=== PATIENT | female | born 1940 | race American Indian/Alaskan Native ===

== ENCOUNTER 2017-09-16 12:01 | Inpatient (IN) | payer MEDICARE, MEDICAID ==
--- NOTE | 2017-09-16 12:27 | ED PDOC ---
Arrival/HPI - General Time Seen by Provider: 09/16/17 12:23 Historian: Patient - History of Present Illness Narrative History of Present Illness (Text): 09/16/17 12:2 77 year old female, whose PMH includes hypertension, bells palsy, and hypothyroidism, who presents to the emergency department complaining of severe bilateral edema. Patient reports her having high salty food and eating it causing her lower extremities to swell. patient is complaining of right foot blister as well as coughing with sputum. Patient denies fever, chest pain, shortness of breath, abdominal pain, nausea, vomiting, diarrhea, or other complaints. PMD: Dr. Valdez Time/Duration: 24 hours Symptom Onset: Gradual Symptom Course: Unchanged Activities at Onset: Rest, Eating Context: Home Past Medical History - Provider Review Nursing Documentation Reviewed: Yes - Infectious Disease Hx of Infectious Diseases: None - Cardiac Hx Hypertension: Yes - Pulmonary Hx Respiratory Disorders: No - Neurological Hx Neurological Disorder: Yes Other/Comment: BELLS PALSY - HEENT Hx HEENT Disorder: No - Renal Hx Renal Disorder: No - Endocrine/Metabolic Hx Hypothyroidism: Yes - Hematological/Oncological Hx Blood Disorders: No - Integumentary Hx Dermatological Disorder: Yes (BILATERAL GLUTEAL FOLD WITH SKIN EXCORIATION. IASD) - Musculoskeletal/Rheumatological Hx Arthritis: Yes - Gastrointestinal Hx Gastrointestinal Disorders: Yes Other/Comment: morbid obesity - Genitourinary/Gynecological Hx Genitourinary Disorders: Yes Hx Incontinence: Yes - Psychiatric Hx Psychophysiologic Disorder: No Hx Substance Use: No - Surgical History Hx Cholecystectomy: Yes Other/Comment: ganglion cyst left hand - Anesthesia Hx Anesthesia: Yes Hx Anesthesia Reactions: No Hx Malignant Hyperthermia: No - Suicidal Assessment Feels Threatened In Home Enviroment: No Family/Social History - Physician Review Nursing Documentation Reviewed: Yes Family/Social History: Unknown Family HX Smoking Status: Never Smoked Hx Alcohol Use: No Hx Substance Use: No Allergies/Home Meds Allergies/Adverse Reactions: Allergies No Known Allergies Allergy (Verified 09/30/15 14:31) Home Medications: Home Meds Medication Instructions Recorded Confirmed Levothyroxine Sodium 0.05 mg PO DAILY 10/15/14 09/16/17 [Levothyroxine] Metoprolol Tartrate 50 mg PO BID 07/08/15 09/16/17 Atorvastatin [Lipitor] 10 mg PO HS 09/30/15 09/16/17 hydrALAZINE [Apresoline] 25 mg PO DAILY 09/30/15 09/16/17 Review of Systems - Physician Review All systems were reviewed & negative as marked: Yes - Review of Systems Constitutional: absent: Fevers Respiratory: absent: SOB Musculoskeletal: Other (bilateral lower extremity edema with blister on right foot) Physical Exam - Physical Exam Narrative Physical Exam (Text): 09/16/17 Gen: VS reviewed, alert, well developed, well nourished, nontoxic, mild distress. ENT: normal pharynx. Eye: EOMI, PERRL. Neck: no JVD, supple, no adenopathy. CV: regular rate, regular rhythm, no rubs, no murmur, no gallops, S1, S2, pulses equal and strong. Pulm: no distress, clear to auscultation, no wheeze, no rhonchi, breath sounds equal, no rales. Abd: soft, nontender, no guarding, no rebound, no rigidity, normal bowel sounds. Ext: (+) extensive edema on bilateral lower extremities, (+) right beck tender to touch with erythema to dorsum of foot circumferential to heel of foot (+) foul odor right foot with excoriating tissue between toes Skin: good color, no rash, no cyanosis. Psych: responds appropriately to questions, normal affect. Neuro: oriented x 3, CN2-12 intact grossly, motor intact, sensation intact. Vital Signs Temp Pulse Resp BP Pulse Ox 09/16/17 16:35 98.5 F 80 18 134/72 98 09/16/17 13:02 98.5 F 72 18 133/64 98 Appearance: Positive for: Well-Appearing, Non-Toxic, Comfortable Pain Distress: None Mental Status: Positive for: Alert and Oriented X 3 Medical Decision Making ED Course and Treatment: 09/16/17 Impression: 77 year old female with extensive edema on bilateral lower extremities, right beck tender to touch with erythema to dorsum of foot circumferential to heel of foot and foul odor right foot with excoriating tissue between toes Plan: -- Chest X-ray -- Lower extremity ultrasound -- Labs -- Reassess and disposition Progress Notes: 09/16/17 15:[address] dillard, patient to be admitted for right foot cellulitis , empiric coverage for mrsa and pseudomonas as there is a foul odor stemming from the foot. patient remained stable clinically during ED course and has not required analgeiscs. - Lab Interpretations Lab Results: 09/16/17 14:20 Lab Results 09/16/17 14:20: WBC 8.0 D, RBC 4.63, Hgb 11.9 L, Hct 37.5, MCV 81.0, MCH 25.7, MCHC 31.7, RDW 15.8 H, Plt Count 217, MPV 10.4, Gran % 74.6 H, Lymph % (Auto) 17.3 L, Cameron % (Auto) 7.1 H, Eos % (Auto) 0.9 L, Baso % (Auto) 0.1, Gran # 6.00 , Lymph # (Auto) 1.4, Cameron # (Auto) 0.6, Eos # (Auto) 0.1, Baso # (Auto) 0.01 I have reviewed the lab results: Yes - RAD Interpretation Narrative RAD Interpretations (Text): 09/16/17 15:29 Chest X-ray reviewed by radiologist, shows no active pulmonary disease. Radiology Orders: 09/16/17 13:04 CHEST PORTABLE [RAD] Stat 09/16/17 13:07 DUPLEX LOWER EXTRM VEIN BILAT [US] Stat Assembler Installer Structures: Radiologist - Medication Orders Current Medication Orders: Discontinued Medications Vancomycin HCl 1.5 gm/ Sodium (Chloride) 500 mls @ 167 mls/hr IVPB ONCE ONE PRN Reason: Protocol Stop: 09/16/17 16:04 Last Admin: 09/16/17 16:26 Dose: 167 mls/hr eMAR Start Stop Document 09/16/17 16:26 HI (Rec: 09/16/17 16:26 HI [email or web address] Intravenous Solution Start Date 09/16/17 Start Time 16:26 Piperacillin Sod/Tazobactam Sod (Zosyn 3.375 In Ns 100ml) 100 mls @ 200 mls/hr IVPB STAT STA PRN Reason: Protocol Stop: 09/16/17 13:36 Last Admin: 09/16/17 15:16 Dose: 200 mls/hr eMAR Start Stop Document 09/16/17 15:16 HI (Rec: 09/16/17 15:16 HI [email or web address]) Intravenous Solution Start Date 09/16/17 Start Time 15:16 - Scribe Statement The provider has reviewed the documentation as recorded by the Waldo Lyon Provider Waldo Attestation: All medical record entries made by the Waldo were at my direction and personally dictated by me. I have reviewed the chart and agree that the record accurately reflects my personal performance of the history, physical exam, medical decision making, and the department course for this patient. I have also personally directed, reviewed, and agree with the discharge instructions and disposition. Disposition/Present on Arrival - Present on Arrival Any Indicators Present on Arrival: No History of DVT/PE: No History of Uncontrolled Diabetes: No Urinary Catheter: No History Surgical Site Infection Following: None - Disposition Have Diagnosis and Disposition been Completed?: Yes Diagnosis: Cellulitis of foot Disposition: HOSPITALIZED Disposition Time: 15:38 Patient Plan: Admission Patient Problems: Current Active Problems Problem Status Onset Cellulitis of foot Acute Condition: GOOD
[2017-09-16] MEDS ORDERED: Vancomycin 1.5 GM in Sodium Chloride 0.9% 500 ML IVPB ONE (13:05)
[2017-09-16] MEDS ORDERED: Piperacillin/Tazobact 3.375 gm 100 ML IVPB STA (13:07)
[2017-09-16 14:41] LABS: BASO # 0.01 K/mm3 (0.0-2.0); BASO % 0.1 % (0.0-3.0); EOS # 0.1 (0.0-0.7); EOS % 0.9 % (1.5-5.0); GRAN % 74.6 % (50.0-68.0); HEMOGLOBIN 11.9 g/dL (12.0-16.0); LYMPH # 1.4 (1.2-3.4); LYMPH % 17.3 % (22.0-35.0); MEAN CORPUSCULAR HEMOGLOBIN 25.7 pg (25.0-35.0); MEAN CORPUSCULAR HGB CONC 31.7 g/dl (31.0-37.0); MEAN PLATELET VOLUME 10.4 fl (7.0-11.0); MONO # 0.6 (0.1-0.6); MONO % 7.1 % (1.0-6.0); RBC 4.63 10^6/uL (3.5-6.1); RED CELL DISTRIBUTION WIDTH 15.8 % (11.5-14.5)
--- NOTE | 2017-09-16 15:14 | RAD ---
Date of service: 09/16/2017 HISTORY: Chest pain COMPARISON: 09/30/2015. FINDINGS: LUNGS: The lungs are well inflated and clear. PLEURA: No significant pleural effusion identified, no pneumothorax apparent. CARDIOVASCULAR: This persistent mild cardiomegaly. Atherosclerotic aortic arch calcifications are present. OSSEOUS STRUCTURES: No significant abnormalities. VISUALIZED UPPER ABDOMEN: Normal. OTHER FINDINGS: None. IMPRESSION: No active pulmonary disease.
--- NOTE | 2017-09-16 16:11 | US ---
HISTORY: Leg pain and swelling. Evaluate for DVT PHYSICIAN(S): Jose Alegria MD. TECHNIQUE: Duplex sonography and color-flow Doppler with graded compression were used to evaluate the deep venous systems of both lower extremities. The exam is very limited by body habitus and edema. The lower femoral veins and tibial veins are not adequately seen. FINDINGS: The visualized deep venous systems of both lower extremities are sonographically normal and compressible. Normal wave forms and augmentation are seen. There is no sonographic evidence for deep venous thrombosis in the visualized segments of both lower extremities. IMPRESSION: No sonographic evidence for deep venous thrombosis in the visualized segments of both lower extremities. Very limited study.
[2017-09-16 19:25] LABS: INR 1.08 (0.93-1.08); PARTIAL THROMBOPLASTIN TIME 30.5 Seconds (25.1-36.5); PROTHROMBIN TIME 12.3 SECONDS (9.4-12.5)
[2017-09-16 19:50] LABS: ALBUMIN 3.4 g/dL (3.0-4.8); BLOOD UREA NITROGEN 10 mg/dL (7-21); CALCIUM 8.7 mg/dL (8.4-10.5); GFR AFRICAN-AMERICAN > 60; GFR NON-AFRICAN AMERICAN > 60
[2017-09-16 19:51] LABS: ALT/SGPT 26 U/L (7-56); AST/SGOT 25 U/L (14-36); B-TYPE NATRIURETIC PEPTIDE 79.3 pg/mL (0-450); TROPONIN I < 0.01 ng/mL
[2017-09-17 05:51] VITALS: BMI 56.8
--- NOTE | 2017-09-17 06:53 | CP.PCM.HP ---
<Gladys Rodrigues - Last Filed: 09/17/17 09:24> History of Present Illness - History of Present Illness History of Present Illness: H&P for Ander Hopper PGY3 This is a 77yo female with past medical history of HTN, hypothyroidism, ryan's palsy (L), arthritis and obesity who came to ED for leg swelling for several days. Patient states this happens when she eats a lot of salt. She also complains of some shortness of breath when she walks. She was found to have a blister on her R food as well. Patient is morbidly obese and lives alone. She has trouble ambulating and getting out of the bed as per nursing staff. Patient had bilateral LE US which was negative for DVT. Patient states she does have someone come to the house who evaluates her feet at home. Patient has been previously admitted to the hospital for fall. She denies chest pain, shortness of breath at rest, fever/chills, numbness/tingling, nausea/vomiting/diarrhea, dysuria or hematuria. Patient does admit to constipation and does take lactulose at home as needed for constipation. Past medical history: HTN, Ryan's palsy, hypothyroidism, arthritis, obesity Past surgical history: cholecystectomy, cyst removal on L hand Home meds: reviewed as per MAR Allergies: None Social history: Denies EtOH, Drug or tobacco use. Lives alone. Family history: Daughter of unknown cancer. Mom- of heart and kidney problems Present on Admission - Present on Admission Any Indicators Present on Admission: No Review of Systems - Review of Systems All systems: reviewed and no additional remarkable complaints except Review of Systems: 12 point ROS reviewed as per HPI and is otherwise negative Past Patient History - Infectious Disease Hx of Infectious Diseases: None - Past Social History Smoking Status: Never Smoked - CARDIAC Hx Hypertension: Yes - PULMONARY Hx Respiratory Disorders: No - NEUROLOGICAL Other/Comment: bells palsey- right facial droop - HEENT Hx HEENT Problems: No - RENAL Hx Chronic Kidney Disease: No - ENDOCRINE/METABOLIC Hx Hypothyroidism: Yes - HEMATOLOGICAL/ONCOLOGICAL Hx Blood Disorders: No - INTEGUMENTARY Hx Dermatological Problems: Yes (BILATERAL GLUTEAL FOLD WITH SKIN EXCORIATION. IASD) - MUSCULOSKELETAL/RHEUMATOLOGICAL Hx Arthritis: Yes Hx Falls: Yes Hx Unsteady Gait: Yes (walker at home) - GASTROINTESTINAL Hx Gastrointestinal Disorders: Yes Other/Comment: morbid obesity - GENITOURINARY/GYNECOLOGICAL Hx Genitourinary Disorders: Yes Hx Incontinence: Yes - PSYCHIATRIC Hx Psychophysiologic Disorder: No Hx Substance Use: No - SURGICAL HISTORY Hx Surgeries: Yes - ANESTHESIA Hx Anesthesia: Yes Hx Anesthesia Reactions: No Hx Malignant Hyperthermia: No Meds Allergies/Adverse Reactions: Allergies Allergy/AdvReac Type Severity Reaction Status Date / Time No Known Allergies Allergy Verified 09/30/15 14:31 Physical Exam - Constitutional Appears: No Acute Distress - Head Exam Head Exam: ATRAUMATIC, NORMAL INSPECTION, NORMOCEPHALIC - Eye Exam Eye Exam: Normal appearance, PERRL Pupil Exam: NORMAL ACCOMODATION - ENT Exam ENT Exam: Mucous Membranes Moist - Respiratory Exam Respiratory Exam: Clear to Auscultation Bilateral, NORMAL BREATHING PATTERN. absent: Rales, Rhonchi, Wheezes - Cardiovascular Exam Cardiovascular Exam: REGULAR RHYTHM, +S1, +S2. absent: Gallop, Rubs, Systolic Murmur - GI/Abdominal Exam GI & Abdominal Exam: Normal Bowel Sounds, Soft. absent: Mass, Rebound, Rigid, Tenderness - Extremities Exam Extremities exam: Positive for: pedal edema (nonpitting bilaterally ), pedal pulses present. Negative for: calf tenderness, tenderness Additional comments: small blister on R johnson and on R foot. Small wound on R heel - Neurological Exam Neurological exam: Alert, CN II-XII Intact, Oriented x3 - Psychiatric Exam Psychiatric exam: Normal Affect, Normal Mood - Skin Skin Exam: Dry, Warm Results - Vital Signs Recent Vital Signs: Last Vital Signs Temp 98.3 F 09/16/17 17:47 Pulse 74 09/16/17 17:47 Resp 16 09/16/17 17:47 BP 149/71 09/16/17 17:47 Pulse Ox 95 09/17/17 01:01 - Labs Result Diagrams: 09/16/17 14:20 09/16/17 19:11 Labs: Laboratory Results - last 24 hr 09/16/17 09/16/17 09/16/17 19:11 19:11 19:11 PT 12.3 INR 1.08 APTT 30.5 Sodium 145 Potassium 4.2 Chloride 105 Carbon Dioxide 32 Anion Gap 12 BUN 10 Creatinine 0.6 L Est GFR ( Amer) > 60 Est GFR (Non-Af Amer) > 60 Random Glucose 108 Lactic Acid 2.7 H Calcium 8.7 Total Bilirubin 0.4 AST 25 ALT 26 Alkaline Phosphatase 82 Troponin I < 0.01 D NT-Pro-B Natriuret Pep 79.3 Total Protein 6.7 Albumin 3.4 Globulin 3.3 Albumin/Globulin Ratio 1.0 L Assessment & Plan - Assessment and Plan (Free Text) Assessment: This is a 77yo female with past medical history of HTN, hypothyroidism, ryan's palsy (L), arthritis and obesity who was admitted for 1. Bilateral Leg edema - multifactorial secondary to morbid obesity v. increased salt intake v. cellulitis 2. HTN 3. Hypothyroidism 4. Hx of Ryan's palsy 5. Arthritis 6. Obesity Plan: Podiatry is consulted. We will follow their recommendations. Patient will need to be evaluated by physical therapy since she has trouble leaving the bed and lives alone. We will place patient on lasix [id number]. ID is on consult for cellulitis. We will continue home medications: ASA, Lipitor, synthroid and Lopressor. Patient is tolerating diet and pain is controlled. Patient is on GI and DVT prophylaxis. Case seen, discussed and reviewed with Dr. Poe. Ander Rodrigues PGY3 - Date & Time Date: 09/17/17 Time: 09:38 <Ata Poe S - Last Filed: 09/17/17 23:33> Results - Vital Signs Recent Vital Signs: Last Vital Signs Temp 98.8 F 09/17/17 22:00 Pulse 71 09/17/17 22:00 Resp 16 09/17/17 22:00 BP 111/49 L 09/17/17 22:00 Pulse Ox 96 09/17/17 22:00 - Labs Result Diagrams: 09/16/17 14:20 09/16/17 19:11 Assessment & Plan - Assessment and Plan (Free Text) Plan: Pt seen and examined. I have reviewed the note of the medical management specialist and agree with it. I have discussed the assessment and plan with the resident. I have reviewed the patient's labs and medications. Pt on Lipitor for dyslipidemia. On Lasix for LE edema. ID evaluation. Podiatry evaluation.
[2017-09-17] MEDS: Levothyroxine 50 MCG TAB PO SCH (09:19)
--- NOTE | 2017-09-17 12:38 | CP.PCM.CON ---
History of Present Illness - History of Present Illness History of Present Illness: 77 year old female with PMH of HTN, tatum's palsy, morbid obesity with BMI 57, arthritis, S/P cholecystectomy, hypothyroidism came in to [facility] complaining of bilateral lower extremity swelling as well as a right heel blister which is painful. She states her leg swelling happens especially after she takes salty foods. She denies fever or chills, no soaking of her feet in water, no nausea or vomiting, no headache or dizziness, no chest pain, no SOB, no abdominal pain , no diarrhea, no dysuria, no travel outside of [place] in the past month, no animal contacts. Infectious Diseases consult is requested to further evaluate and manage. Review of Systems - Review of Systems All systems: reviewed and no additional remarkable complaints except (as per HPI ) Past Patient History - Infectious Disease Hx of Infectious Diseases: None - Past Social History Smoking Status: Never Smoked - CARDIAC Hx Hypertension: Yes - PULMONARY Hx Respiratory Disorders: No - NEUROLOGICAL Other/Comment: bells palsey- right facial droop - HEENT Hx HEENT Problems: No - RENAL Hx Chronic Kidney Disease: No - ENDOCRINE/METABOLIC Hx Hypothyroidism: Yes - HEMATOLOGICAL/ONCOLOGICAL Hx Blood Disorders: No - INTEGUMENTARY Hx Dermatological Problems: Yes (BILATERAL GLUTEAL FOLD WITH SKIN EXCORIATION. IASD) - MUSCULOSKELETAL/RHEUMATOLOGICAL Hx Arthritis: Yes Hx Falls: Yes Hx Unsteady Gait: Yes (walker at home) - GASTROINTESTINAL Hx Gastrointestinal Disorders: Yes Other/Comment: morbid obesity - GENITOURINARY/GYNECOLOGICAL Hx Genitourinary Disorders: Yes Hx Incontinence: Yes - PSYCHIATRIC Hx Psychophysiologic Disorder: No Hx Substance Use: No - SURGICAL HISTORY Hx Surgeries: Yes - ANESTHESIA Hx Anesthesia: Yes Hx Anesthesia Reactions: No Hx Malignant Hyperthermia: No Meds Allergies/Adverse Reactions: Allergies Allergy/AdvReac Type Severity Reaction Status Date / Time No Known Allergies Allergy Verified 09/30/15 14:31 - Medications Medications: Current Medications Atorvastatin Calcium (Lipitor) 10 mg PO HS [facility] Last Admin: 09/16/17 21:36 Dose: 10 mg Levothyroxine Sodium (Synthroid) 50 mcg PO DAILY [facility] Metoprolol Tartrate (Lopressor) 50 mg PO BID [facility] Last Admin: 09/16/17 18:39 Dose: 50 mg Physical Exam - Constitutional Appears: Chronically Ill - Head Exam Head Exam: NORMAL INSPECTION - ENT Exam ENT Exam: Mucous Membranes Moist - Neck Exam Neck exam: Negative for: Lymphadenopathy, Meningismus - Respiratory Exam Respiratory Exam: Decreased Breath Sounds - Cardiovascular Exam Cardiovascular Exam: +S1, +S2 - GI/Abdominal Exam GI & Abdominal Exam: Soft. absent: Tenderness - Extremities Exam Additional comments: right heel blister with dressings in place; bilateral lower extremity swelling without erythema or tenderness, no discharge Results - Vital Signs Recent Vital Signs: Last Vital Signs Temp 98.3 F 09/16/17 17:47 Pulse 74 09/16/17 17:47 Resp 16 09/16/17 17:47 BP 149/71 09/16/17 17:47 Pulse Ox 98 09/16/17 16:54 - Labs Result Diagrams: 09/16/17 14:20 09/16/17 19:11 Labs: Laboratory Results - last 24 hr 09/16/17 09/16/17 09/16/17 19:11 19:11 19:11 PT 12.3 INR 1.08 APTT 30.5 Sodium 145 Potassium 4.2 Chloride 105 Carbon Dioxide 32 Anion Gap 12 BUN 10 Creatinine 0.6 L Est GFR ( Amer) > 60 Est GFR (Non-Af Amer) > 60 Random Glucose 108 Lactic Acid 2.7 H Calcium 8.7 Total Bilirubin 0.4 AST 25 ALT 26 Alkaline Phosphatase 82 Troponin I < 0.01 D NT-Pro-B Natriuret Pep 79.3 Total Protein 6.7 Albumin 3.4 Globulin 3.3 Albumin/Globulin Ratio 1.0 L Assessment & Plan - Assessment and Plan (Free Text) Plan: Assessment right heel blister lower extremity swelling probably venous stasis HTN tatum's palsy morbid obesity with BMI 57 arthritis S/P cholecystectomy hypothyroidism Plan will order bactroban over the heel blister, follow up Podiatry evaluation will monitor clinically
--- NOTE | 2017-09-17 14:17 | CP.PCM.CON ---
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 She states that her legs are often swollen and get very big. Says she takes water pills which help to alleviate her swelling but says the legs still feel tired. Says she can walk a few blocks before she gets very fatigued. States the legs hurt all the time, not just when she tries to walk. Denies F/C/N/V/CP/SOB. Denies numbness tingling or burning in the lower extremities. PSHx: cholecystectomy, cyst removal on L hand All: NKDA SocHx: Denies EtOH, cigarette or drug use FamHx: Daughter from cancer. Mother from heart, kidney issues Review of Systems - Review of Systems All systems: reviewed and no additional remarkable complaints except (per HPI) Past Patient History - Infectious Disease Hx of Infectious Diseases: None - Past Social History Smoking Status: Never Smoked - CARDIAC Hx Hypertension: Yes - PULMONARY Hx Respiratory Disorders: No - NEUROLOGICAL Other/Comment: bells palsey- right facial droop - HEENT Hx HEENT Problems: No - RENAL Hx Chronic Kidney Disease: No - ENDOCRINE/METABOLIC Hx Hypothyroidism: Yes - HEMATOLOGICAL/ONCOLOGICAL Hx Blood Disorders: No - INTEGUMENTARY Hx Dermatological Problems: Yes (BILATERAL GLUTEAL FOLD WITH SKIN EXCORIATION. IASD) - MUSCULOSKELETAL/RHEUMATOLOGICAL Hx Arthritis: Yes Hx Falls: Yes Hx Unsteady Gait: Yes (walker at home) - GASTROINTESTINAL Hx Gastrointestinal Disorders: Yes Other/Comment: morbid obesity - GENITOURINARY/GYNECOLOGICAL Hx Genitourinary Disorders: Yes Hx Incontinence: Yes - PSYCHIATRIC Hx Psychophysiologic Disorder: No Hx Substance Use: No - SURGICAL HISTORY Hx Surgeries: Yes - ANESTHESIA Hx Anesthesia: Yes Hx Anesthesia Reactions: No Hx Malignant Hyperthermia: No Meds Allergies/Adverse Reactions: Allergies Allergy/AdvReac Type Severity Reaction Status Date / Time No Known Allergies Allergy Verified 09/30/15 14:31 - Medications Medications: Current Medications Acetaminophen (Tylenol 325mg Tab) 650 mg PO Q6H PRN PRN Reason: Pain, moderate (4-7) Aspirin (Ecotrin) 81 mg PO DAILY [facility] Last Admin: 09/17/17 09:19 Dose: 81 mg Atorvastatin Calcium (Lipitor) 10 mg PO HS [facility] Last Admin: 09/16/17 21:36 Dose: 10 mg Famotidine (Pepcid) 40 mg PO HS [facility] Furosemide (Lasix) 40 mg IVP Q12 [facility] Last Admin: 09/17/17 09:57 Dose: 40 mg Heparin Sodium (Porcine) (Heparin) 5,000 units SC Q8 [facility] PRN Reason: Protocol Levothyroxine Sodium (Synthroid) 50 mcg PO DAILY [facility] Last Admin: 09/17/17 09:19 Dose: 50 mcg Metoprolol Tartrate (Lopressor) 50 mg PO BID [facility] Last Admin: 09/17/17 09:19 Dose: 50 mg Mupirocin (Bactroban Ointment) 0 gm TOP BID [facility] Oxycodone/Acetaminophen (Percocet 5/325 Mg Tab) 1 tab PO Q6H PRN PRN Reason: Pain, severe (8-10) Stop: 09/20/17 07:49 Physical Exam - Constitutional Appears: Well, Non-toxic, No Acute Distress - Extremities Exam Additional comments: Lower extremity focused exam: Vasc: DP/PT pulses non palpable secondary to edema. Temperature gradient warm to cool. +3 pitting edema noted from tibial tuberosity to dorsum of foot B/L. CFT < 3 sec to all digits Derm: Right plantar heel deep tissue injury noted with no breaks in skin or soft tissue. No open lesions, no erythema, no ecchymosis, no interdigital maceration Neuro: Protective sensation grossly intact Ortho: Mild tenderness noted upon elevation of legs. No posterior calf tenderness noted to palpation B/L - Neurological Exam Neurological exam: Alert, Oriented x3 - Psychiatric Exam Psychiatric exam: Normal Affect, Normal Mood Results - Vital Signs Recent Vital Signs: Last Vital Signs Temp 98.7 F 09/17/17 06:00 Pulse 79 09/17/17 06:00 Resp 20 09/17/17 06:00 BP 122/64 09/17/17 09:57 Pulse Ox 96 09/17/17 06:00 - Labs Result Diagrams: 09/16/17 14:20 09/16/17 19:11 Labs: Laboratory Results - last 24 hr 09/16/17 09/16/17 09/16/17 19:11 19:11 19:11 PT 12.3 INR 1.08 APTT 30.5 Sodium 145 Potassium 4.2 Chloride 105 Carbon Dioxide 32 Anion Gap 12 BUN 10 Creatinine 0.6 L Est GFR ( Amer) > 60 Est GFR (Non-Af Amer) > 60 Random Glucose 108 Lactic Acid 2.7 H Calcium 8.7 Total Bilirubin 0.4 AST 25 ALT 26 Alkaline Phosphatase 82 Troponin I < 0.01 D NT-Pro-B Natriuret Pep 79.3 Total Protein 6.7 Albumin 3.4 Globulin 3.3 Albumin/Globulin Ratio 1.0 L Assessment & Plan - Assessment and Plan (Free Text) Assessment: 77 y/o female with bilateral lower extremity edema Plan: Pt seen and evaluated at bedside Discussed with attending Dr. Mckinney KAYLA compression wraps applied B/L for edema control Rx arterial dopplers to evaluate LE circulation Multipodus boots ordered, to be worn at all times in bed Thank you for this consult <Adis Mckinney - Last Filed: 09/17/17 18:18> Meds - Medications Medications: Current Medications Acetaminophen (Tylenol 325mg Tab) 650 mg PO Q6H PRN PRN Reason: Pain, moderate (4-7) Aspirin (Ecotrin) 81 mg PO DAILY [facility] Last Admin: 09/17/17 09:19 Dose: 81 mg Atorvastatin Calcium (Lipitor) 10 mg PO HS [facility] Last Admin: 09/16/17 21:36 Dose: 10 mg Famotidine (Pepcid) 40 mg PO HS [facility] Furosemide (Lasix) 40 mg IVP Q12 [facility] Last Admin: 09/17/17 09:57 Dose: 40 mg Heparin Sodium (Porcine) (Heparin) 5,000 units SC Q8 [facility] PRN Reason: Protocol Last Admin: 09/17/17 16:15 Dose: 5,000 units Levothyroxine Sodium (Synthroid) 50 mcg PO DAILY [facility] Last Admin: 09/17/17 09:19 Dose: 50 mcg Metoprolol Tartrate (Lopressor) 50 mg PO BID [facility] Last Admin: 09/17/17 17:03 Dose: 50 mg Mupirocin (Bactroban Ointment) 0 gm TOP BID [facility] Last Admin: 09/17/17 17:03 Dose: 1 applic Oxycodone/Acetaminophen (Percocet 5/325 Mg Tab) 1 tab PO Q6H PRN PRN Reason: Pain, severe (8-10) Stop: 09/20/17 07:49 Results - Vital Signs Recent Vital Signs: Last Vital Signs Temp 98.7 F 09/17/17 06:00 Pulse 79 09/17/17 06:00 Resp 20 09/17/17 06:00 BP 122/64 09/17/17 09:57 Pulse Ox 96 09/17/17 06:00 - Labs Result Diagrams: 09/16/17 14:20 09/16/17 19:11 Labs: Laboratory Results - last 24 hr 09/16/17 09/16/17 09/16/17 19:11 19:11 19:11 PT 12.3 INR 1.08 APTT 30.5 Sodium 145 Potassium 4.2 Chloride 105 Carbon Dioxide 32 Anion Gap 12 BUN 10 Creatinine 0.6 L Est GFR ( Amer) > 60 Est GFR (Non-Af Amer) > 60 Random Glucose 108 Lactic Acid 2.7 H Calcium 8.7 Total Bilirubin 0.4 AST 25 ALT 26 Alkaline Phosphatase 82 Troponin I < 0.01 D NT-Pro-B Natriuret Pep 79.3 Total Protein 6.7 Albumin 3.4 Globulin 3.3 Albumin/Globulin Ratio 1.0 L Attending/Attestation - Attestation I have personally seen and examined this patient.: Yes I have fully participated in the care of the patient.: Yes I have reviewed all pertinent clinical information: Yes
[2017-09-17] MEDS: Mupirocin 2% Ointment 15 GM TUBE TOP SCH (17:03)
[2017-09-17] MEDS: Oxycodone/Acetaminophen 5/325 mg Tab PO PRN (21:20)
[2017-09-18] MEDS: Mupirocin 2% Ointment 15 GM TUBE TOP SCH ×2 (10:00→17:43)
[2017-09-18] MEDS: Levothyroxine 50 MCG TAB PO SCH (10:44)
--- NOTE | 2017-09-18 12:52 | CP.PCM.PN ---
Subjective - Date & Time of Evaluation Date of Evaluation: 09/17/17 Time of Evaluation: 12:00 - Subjective Subjective: No fevers, not in distress, still with leg swelling but less. Objective - Vital Signs/Intake and Output Vital Signs (last 24 hours): Temp Pulse Resp BP Pulse Ox 98.8 F 71 16 111/49 L 96 09/17/17 22:00 09/17/17 22:00 09/17/17 22:00 09/17/17 22:00 09/17/17 22:00 - Medications Medications: Current Medications Acetaminophen (Tylenol 325mg Tab) 650 mg PO Q6H PRN PRN Reason: Pain, moderate (4-7) Aspirin (Ecotrin) 81 mg PO DAILY [facility] Last Admin: 09/17/17 09:19 Dose: 81 mg Atorvastatin Calcium (Lipitor) 10 mg PO HS [facility] Last Admin: 09/17/17 21:20 Dose: 10 mg Famotidine (Pepcid) 40 mg PO HS [facility] Last Admin: 09/17/17 21:20 Dose: 40 mg Furosemide (Lasix) 40 mg IVP Q12 [facility] Last Admin: 09/17/17 09:57 Dose: 40 mg Heparin Sodium (Porcine) (Heparin) 5,000 units SC Q8 [facility] PRN Reason: Protocol Last Admin: 09/17/17 21:19 Dose: 5,000 units Levothyroxine Sodium (Synthroid) 50 mcg PO DAILY [facility] Last Admin: 09/17/17 09:19 Dose: 50 mcg Metoprolol Tartrate (Lopressor) 50 mg PO BID [facility] Last Admin: 09/17/17 17:03 Dose: 50 mg Mupirocin (Bactroban Ointment) 0 gm TOP BID [facility] Last Admin: 09/17/17 17:03 Dose: 1 applic Oxycodone/Acetaminophen (Percocet 5/325 Mg Tab) 1 tab PO Q6H PRN PRN Reason: Pain, severe (8-10) Stop: 09/20/17 07:49 Last Admin: 09/17/17 21:20 Dose: 1 tab - Labs Labs: 09/16/17 19:11 PT 12.3 SECONDS (9.4-12.5) 09/16/17 19:11 INR 1.08 (0.93-1.08) 09/16/17 19:11 APTT 30.5 Seconds (25.1-36.5) 09/16/17 19:11 - Constitutional Appears: Non-toxic, Chronically Ill - Head Exam Head Exam: NORMAL INSPECTION - Respiratory Exam Respiratory Exam: Decreased Breath Sounds - Cardiovascular Exam Cardiovascular Exam: +S1, +S2 - GI/Abdominal Exam GI & Abdominal Exam: Soft. absent: Tenderness - Extremities Exam Additional comments: right foot with dressings in place Assessment and Plan - Assessment and Plan (Free Text) Plan: Assessment right heel blister, R/O peripheral arterial disease lower extremity swelling probably venous stasis HTN tatum's palsy morbid obesity with BMI 57 arthritis S/P cholecystectomy hypothyroidism Plan continue bactroban day 2 over the heel blister; reviewed Podiatry evaluation - will follow up SHAKIR's will continue to monitor clinically
--- NOTE | 2017-09-18 16:28 | US ---
PROCEDURE: Lower extremity SHAKIR exam HISTORY: Peripheral vascular disease . Pain and ulceration. PHYSICIAN(S): Jose Alegria MD. FINDINGS: The exam is very limited by the patient's body habitus and in mobility. Cuffs could not be placed on the thighs The resting SHAKIR's are normal: right, 0.88and left, 1.17 The brachial systolic pressures are symmetric. The calf, ankle, and metatarsal PVR waveforms are relatively normal and symmetric. No significant gradients are seen. IMPRESSION: 1. Very limited study. 2. The PVR waveforms and pressures below the knees are relatively normal and symmetric
[2017-09-19] MEDS: Mupirocin 2% Ointment 15 GM TUBE TOP SCH ×2 (10:00→17:52)
[2017-09-19] MEDS: POLYETHYLENE GLYCOL 3350 17 GM/Dose PACKET PO SCH ×2 (10:02→17:46)
[2017-09-19] MEDS: Levothyroxine 50 MCG TAB PO SCH (10:02)
--- NOTE | 2017-09-19 10:47 | CP.PCM.PN ---
Subjective - Date & Time of Evaluation Date of Evaluation: 09/19/17 Time of Evaluation: 10:43 - Subjective Subjective: Podiatry Progress Note- Dr. Edwards/Dr. Mckinney 77 y/o female with PMHx of HTN, hypothyroidism, arthritis, obesity, Ryan's palsy seen at bedside for bilateral lower extremity swelling and right heel DTI. Patient reports that she is feeling a little better today. Denies acute overnight events. Denies nausea/fever/shortness of breath/chest pains or chills. No other complaints today. Multipodus boots not on at bedside today. Reports has been wearing the boots all night and is taking a break from them. Objective - Vital Signs/Intake and Output Vital Signs (last 24 hours): Temp Pulse Resp BP Pulse Ox 99.5 F 80 21 114/69 95 09/19/17 08:18 09/19/17 10:01 09/19/17 08:18 09/19/17 10:01 09/19/17 08:18 Intake and Output: 09/19/17 09/19/17 06:59 18:59 Intake Total 660 Output Total 500 Balance 160 - Medications Medications: Current Medications Acetaminophen (Tylenol 325mg Tab) 650 mg PO Q6H PRN PRN Reason: Pain, moderate (4-7) Aspirin (Ecotrin) 81 mg PO DAILY [facility] Last Admin: 09/19/17 10:02 Dose: 81 mg Atorvastatin Calcium (Lipitor) 10 mg PO HS [facility] Last Admin: 09/18/17 22:03 Dose: 10 mg Famotidine (Pepcid) 40 mg PO HS [facility] Last Admin: 09/18/17 22:03 Dose: 40 mg Furosemide (Lasix) 40 mg IVP Q12 [facility] Last Admin: 09/19/17 10:01 Dose: 40 mg Heparin Sodium (Porcine) (Heparin) 5,000 units SC Q8 [facility] PRN Reason: Protocol Last Admin: 09/19/17 05:18 Dose: 5,000 units Levothyroxine Sodium (Synthroid) 50 mcg PO DAILY [facility] Last Admin: 09/19/17 10:02 Dose: 50 mcg Metoprolol Tartrate (Lopressor) 50 mg PO BID [facility] Last Admin: 09/19/17 10:01 Dose: 50 mg Mupirocin (Bactroban Ointment) 0 gm TOP BID [facility] Last Admin: 09/18/17 17:43 Dose: 1 applic Oxycodone/Acetaminophen (Percocet 5/325 Mg Tab) 1 tab PO Q6H PRN PRN Reason: Pain, severe (8-10) Stop: 09/20/17 07:49 Last Admin: 09/17/17 21:20 Dose: 1 tab Polyethylene Glycol (Miralax) 17 gm PO BID [facility] Last Admin: 09/19/17 10:02 Dose: 17 gm - Labs Labs: 09/16/17 19:11 PT 12.3 SECONDS (9.4-12.5) 09/16/17 19:11 INR 1.08 (0.93-1.08) 09/16/17 19:11 APTT 30.5 Seconds (25.1-36.5) 09/16/17 19:11 - Constitutional Appears: Well, Non-toxic, No Acute Distress - Extremities Exam Extremities Exam: absent: Calf Tenderness Additional comments: Lower extremity focused exam: Vasc: DP/PT pulses non palpable secondary to edema. Temperature gradient warm to cool. +3 pitting edema noted from tibial tuberosity to dorsum of foot B/L. CFT < 3 sec to all digits Derm: Right plantar heel deep tissue injury noted with no breaks in skin or soft tissue. No open lesions, no erythema, no ecchymosis, no interdigital maceration. No bogginess. No clinical signs of infection. No DTI noted to the left heel. No open lesions noted. Neuro: Protective sensation grossly intact Ortho: Mild tenderness noted upon elevation of legs. No posterior calf tenderness noted to palpation B/L - Psychiatric Exam Psychiatric exam: Normal Affect, Normal Mood Assessment and Plan - Assessment and Plan (Free Text) Assessment: 77 y/o female with bilateral lower extremity edema and right heel DTI Plan: Pt seen and evaluated at bedside Discussed with attending Dr. Edwards Afebrile, absent leukocytosis KAYLA compression wraps applied B/L for edema control Arterial dopplers to evaluate LE circulation -PVR waveorms and pressure below knees are relatively normal and symmetric -Right ABIs .88, Left ABIs 1.17 Venous duplex- negative DVT Multipodus to be worn at all times in bed Educated patient the important of wearing multipodus boots at all times
--- NOTE | 2017-09-19 16:27 | CP.PCM.PN ---
Subjective - Date & Time of Evaluation Date of Evaluation: 09/19/17 Time of Evaluation: 11:35 - Subjective Subjective: Comfortable, no fevers. Objective - Vital Signs/Intake and Output Vital Signs (last 24 hours): Temp Pulse Resp BP Pulse Ox 99.5 F 84 21 124/65 95 09/19/17 06:00 09/19/17 06:00 09/19/17 06:00 09/19/17 06:00 09/19/17 06:00 Intake and Output: 09/19/17 09/19/17 06:59 18:59 Intake Total 660 Output Total 500 Balance 160 - Medications Medications: Current Medications Acetaminophen (Tylenol 325mg Tab) 650 mg PO Q6H PRN PRN Reason: Pain, moderate (4-7) Aspirin (Ecotrin) 81 mg PO DAILY [facility] Last Admin: 09/18/17 10:44 Dose: 81 mg Atorvastatin Calcium (Lipitor) 10 mg PO HS [facility] Last Admin: 09/18/17 22:03 Dose: 10 mg Famotidine (Pepcid) 40 mg PO HS [facility] Last Admin: 09/18/17 22:03 Dose: 40 mg Furosemide (Lasix) 40 mg IVP Q12 [facility] Last Admin: 09/18/17 22:03 Dose: 40 mg Heparin Sodium (Porcine) (Heparin) 5,000 units SC Q8 [facility] PRN Reason: Protocol Last Admin: 09/19/17 05:18 Dose: 5,000 units Levothyroxine Sodium (Synthroid) 50 mcg PO DAILY [facility] Last Admin: 09/18/17 10:44 Dose: 50 mcg Metoprolol Tartrate (Lopressor) 50 mg PO BID [facility] Last Admin: 09/18/17 17:42 Dose: 50 mg Mupirocin (Bactroban Ointment) 0 gm TOP BID [facility] Last Admin: 09/18/17 17:43 Dose: 1 applic Oxycodone/Acetaminophen (Percocet 5/325 Mg Tab) 1 tab PO Q6H PRN PRN Reason: Pain, severe (8-10) Stop: 09/20/17 07:49 Last Admin: 09/17/17 21:20 Dose: 1 tab - Labs Labs: 09/16/17 19:11 PT 12.3 SECONDS (9.4-12.5) 09/16/17 19:11 INR 1.08 (0.93-1.08) 09/16/17 19:11 APTT 30.5 Seconds (25.1-36.5) 09/16/17 19:11 - Constitutional Appears: Chronically Ill - Head Exam Head Exam: NORMAL INSPECTION - Respiratory Exam Respiratory Exam: Decreased Breath Sounds - Cardiovascular Exam Cardiovascular Exam: +S1, +S2 - GI/Abdominal Exam GI & Abdominal Exam: Soft. absent: Tenderness Assessment and Plan - Assessment and Plan (Free Text) Plan: Assessment right heel blister, with no evidence of peripheral arterial disease lower extremity swelling probably venous stasis HTN tatum's palsy morbid obesity with BMI 57 arthritis S/P cholecystectomy hypothyroidism Plan continue bactrobanover the heel blister; reviewed Podiatry evaluation will continue to monitor clinically
--- NOTE | 2017-09-19 21:51 | PN ---
DATE: 09/19/2017 SUBJECTIVE: Ms. Alegria is a 77-year-old female admitted to the hospital with bilateral lower extremity cellulitis. She has morbid obesity, unable to ambulate, history of hypothyroidism, Ryan palsy, osteoarthritis. Complaining of pain in the neck due to positioning. Bilateral lower extremity Doppler did not show significant wave forms. Currently on IV antibiotics as per ID. PAST MEDICAL HISTORY: Hypertension, Ryan palsy, hypothyroidism, arthritis, morbid obesity. PAST SURGICAL HISTORY: Cholecystectomy, cyst removed from the hand. CURRENT MEDICATIONS: Tylenol 650 every 6 hours p.r.n., aspirin 81 mg daily, Lipitor 10 mg daily, Pepcid 40 mg at bedtime, Lasix 40 mg IV every 12 hours, heparin 5000 every 8 hours for DVT prophylaxis, Synthroid 50 mcg daily, metoprolol 50 mg p.o. b.i.d., MiraLax daily, Bactroban ointment. FAMILY HISTORY: Daughter of unknown cancer. REVIEW OF SYSTEMS: As per HPI. Rest of 12-point review of systems reviewed negative. PHYSICAL EXAMINATION:: GENERAL: Comfortable in bed, in no acute distress. Morbidly obese. VITAL SIGNS: Afebrile, temperature 98.2, heart rate 70 per minute, blood pressure 120/56, respiratory rate 20 per minute, oxygen saturation 98% on room air. HEENT: Pallor positive. NECK: No lymphadenopathy. CHEST: Air entry present and equal bilaterally. No added sounds. CARDIOVASCULAR: S1, S2 normal. No murmur. No gallop. ABDOMEN: Soft, nontender. No hepatosplenomegaly. EXTREMITIES: Bilateral extremity in dressing. INTERACTIVE MARKETING STRATEGIST: Alert, oriented x3. No focal, sensory, motor deficit. Moving all the limbs. SPINE: Nontender. LABORATORY DATA: Blood culture no growth till date. White count 8, hemoglobin 11.9, hematocrit 37.5, platelet 217. Sodium 145, potassium 4.2, creatinine 0.8. ASSESSMENT AND PLAN 1. Morbid obesity. 2. Bilateral lower extremity cellulitis. 3. Hypertension. 4. Mild anemia. PLAN: Continue current medications. She is on Bactroban topically. Podiatry consulted. Continue hypothyroid medication Synthroid 50 mcg p.o. daily. DVT prophylaxis with heparin 5000 t.i.d., Lasix b.i.d. Percocet p.r.n. for pain. Blood count stable. Hemoglobin showed mild anemia, 11.9 hemoglobin. We will continue to monitor. Coags normal. Renal functions within normal limits. Electrolytes normal, creatinine 0.6. Dorinda Cunningham MD
[2017-09-19] MEDS: Oxycodone/Acetaminophen 5/325 mg Tab PO PRN (22:45)
--- NOTE | 2017-09-20 08:38 | PN ---
DATE: 09/18/2017 SUBJECTIVE: The patient is a 77-year-old black female, seen and examined, lying in bed. The patient was admitted on 09/17/2017 leg swelling associated with some shortness of breath and generalized weakness. The patient has history of hypothyroidism, hypertension, Ryan palsy with left facial weakness, generalized osteoarthritis. PHYSICAL EXAMINATION: GENERAL: On examination today, she is awake and alert, able to communicate. VITAL SIGNS: She is afebrile, pulse 76, respirations 20, blood pressure 125/70. HEENT: She has left facial weakness. LUNGS: Bilateral fair airflow. No rhonchi or crackle. HEART: S1 and S2 audible. ABDOMEN: Soft, obese, nontender. No rebound, no guarding. NEUROLOGIC: The patient is awake and alert with generalized weakness. EXTREMITIES: Bilateral legs are in dressing. LABORATORY DATA: , PT 12.3, INR 1.08. Chemistry, her lactic acid is 2.7. Blood cultures are negative. ASSESSMENT: 1. Bilateral leg edema. 2. Deconditioning and difficulty walking. 3. History of Ryan palsy. 4. Hypothyroidism. 5. Generalized osteoarthritis. 6. Hypertension. PLAN: The patient is getting pressure bandages placed to both legs. She is on aspirin, lactulose. She is on DVT prophylaxis and we will continue on current medications. Out of bed to chair, we will reevaluate the patient in the morning. Rivka Carney MD
[2017-09-20] MEDS: POLYETHYLENE GLYCOL 3350 17 GM/Dose PACKET PO SCH ×2 (09:32→17:58)
[2017-09-20] MEDS: Levothyroxine 50 MCG TAB PO SCH (09:32)
[2017-09-20] MEDS: Oxycodone/Acetaminophen 5/325 mg Tab PO PRN (09:37)
--- NOTE | 2017-09-20 09:57 | CP.PCM.DIS ---
<RaviGladys - Last Filed: 09/20/17 14:13> Provider - Provider Date of Admission: 09/16/17 15:39 Attending physician: Ata Poe MD Primary care physician: Aashish Valedz MD Consults: Podiatry Time Spent in preparation of Discharge (in minutes): 35 Hospital Course - Lab Results Lab Results: Most Recent Lab Values WBC 8.0 10^3/ul (4.5-11.0) D 09/16/17 14:20 RBC 4.63 10^6/uL (3.5-6.1) 09/16/17 14:20 Hgb 11.9 g/dL (12.0-16.0) L 09/16/17 14:20 Hct 37.5 % (36.0-48.0) 09/16/17 14:20 MCV 81.0 fl (80.0-105.0) 09/16/17 14:20 MCH 25.7 pg (25.0-35.0) 09/16/17 14:20 MCHC 31.7 g/dl (31.0-37.0) 09/16/17 14:20 RDW 15.8 % (11.5-14.5) H 09/16/17 14:20 Plt Count 217 10^3/uL (120.0-450.0) 09/16/17 14:20 MPV 10.4 fl (7.0-11.0) 09/16/17 14:20 Gran % 74.6 % (50.0-68.0) H 09/16/17 14:20 Lymph % (Auto) 17.3 % (22.0-35.0) L 09/16/17 14:20 Ramsey % (Auto) 7.1 % (1.0-6.0) H 09/16/17 14:20 Eos % (Auto) 0.9 % (1.5-5.0) L 09/16/17 14:20 Baso % (Auto) 0.1 % (0.0-3.0) 09/16/17 14:20 Gran # 6.00 (1.4-6.5) 09/16/17 14:20 Lymph # (Auto) 1.4 (1.2-3.4) 09/16/17 14:20 Ramsey # (Auto) 0.6 (0.1-0.6) 09/16/17 14:20 Eos # (Auto) 0.1 (0.0-0.7) 09/16/17 14:20 Baso # (Auto) 0.01 K/mm3 (0.0-2.0) 09/16/17 14:20 ESR 49 mm/hr (0.0-20.0) H 09/18/17 10:25 PT 12.3 SECONDS (9.4-12.5) 09/16/17 19:11 INR 1.08 (0.93-1.08) 09/16/17 19:11 APTT 30.5 Seconds (25.1-36.5) 09/16/17 19:11 Sodium 145 mmol/L (132-148) 09/16/17 19:11 Potassium 4.2 mmol/L (3.6-5.0) 09/16/17 19:11 Chloride 105 mmol/L (98-107) 09/16/17 19:11 Carbon Dioxide 32 mmol/L (21-33) 09/16/17 19:11 Anion Gap 12 (10-20) 09/16/17 19:11 BUN 10 mg/dL (7-21) 09/16/17 19:11 Creatinine 0.6 mg/dl (0.7-1.2) L 09/16/17 19:11 Est GFR ( Amer) > 60 09/16/17 19:11 Est GFR (Non-Af Amer) > 60 09/16/17 19:11 Random Glucose 108 mg/dL (70-110) 09/16/17 19:11 Lactic Acid 2.7 mmol/L (0.7-2.1) H 09/16/17 19:11 Calcium 8.7 mg/dL (8.4-10.5) 09/16/17 19:11 Total Bilirubin 0.4 mg/dL (0.2-1.3) 09/16/17 19:11 AST 25 U/L (14-36) 09/16/17 19:11 ALT 26 U/L (7-56) 09/16/17 19:11 Alkaline Phosphatase 82 U/L (38-126) 09/16/17 19:11 Troponin I < 0.01 ng/mL D 09/16/17 19:11 NT-Pro-B Natriuret Pep 79.3 pg/mL (0-450) 09/16/17 19:11 Total Protein 6.7 g/dL (5.8-8.3) 09/16/17 19:11 Albumin 3.4 g/dL (3.0-4.8) 09/16/17 19:11 Globulin 3.3 gm/dL 09/16/17 19:11 Albumin/Globulin Ratio 1.0 (1.1-1.8) L 09/16/17 19:11 - Hospital Course Hospital Course: This is a 77yo female with past medical history of HTN, hypothyroidism, tatum's palsy (L), arthritis and obesity who was admitted for bilateral leg edema secondary to morbid obesity with increased salt intake. Patient was also suspected to have R leg cellulitis, but most likely secondary to venous stasis. She had LE duplex US and SHAKIR which were both limited due to body habitus but within normal limits. ID was consulted. Patient was placed on bacitracin only. Podiatry consulted and did local wound care and placed patient on boots. She was placed on Lasix and leg edema improved. Patient had PT and they recommended [facility]. Patient will be d/c to [facility]. She verbalized and agreed with discharge plan. - Date & Time of H&P Date of H&P: 09/17/17 Time of H&P: 10:00 Discharge Exam - Head Exam Head Exam: ATRAUMATIC, NORMAL INSPECTION, NORMOCEPHALIC - Eye Exam Eye Exam: Normal appearance, PERRL Pupil Exam: NORMAL ACCOMODATION, PERRL - ENT Exam ENT Exam: Mucous Membranes Moist - Respiratory Exam Respiratory Exam: Clear to PA & Lateral, NORMAL BREATHING PATTERN, UNREMARKABLE. absent: Rhonchi, Wheezes, Respiratory Distress - Cardiovascular Exam Cardiovascular Exam: REGULAR RHYTHM, +S1, +S2. absent: Gallop, Rubs, Systolic Murmur - GI/Abdominal Exam GI & Abdominal Exam: Normal Bowel Sounds, Unremarkable. absent: Mass, Rigid, Soft, Tenderness - Extremities Exam Extremities exam: normal inspection Additional comments: dressing on heels in place- clean and dry - Neurological Exam Neurological exam: Alert, CN II-XII Intact, Oriented x3 - Psychiatric Exam Psychiatric exam: Normal Affect, Normal Mood - Skin Skin Exam: Dry, Intact, Warm Discharge Plan - Follow Up Plan Condition: GOOD Disposition: HOME/ ROUTINE Instructions: Cellulitis (Skin Infection), Adult (DC) Additional Instructions: Patient being discharge to [facility] Referrals: Aashish Valdez MD [Primary Care Provider] - <Ata Poe - Last Filed: 09/20/17 19:56> Provider - Provider Date of Admission: 09/16/17 15:39 Attending physician: Ata Poe MD Primary care physician: Aashish Valdez MD Hospital Course - Lab Results Lab Results: Most Recent Lab Values WBC 8.0 10^3/ul (4.5-11.0) D 09/16/17 14:20 RBC 4.63 10^6/uL (3.5-6.1) 09/16/17 14:20 Hgb 11.9 g/dL (12.0-16.0) L 09/16/17 14:20 Hct 37.5 % (36.0-48.0) 09/16/17 14:20 MCV 81.0 fl (80.0-105.0) 09/16/17 14:20 MCH 25.7 pg (25.0-35.0) 09/16/17 14:20 MCHC 31.7 g/dl (31.0-37.0) 09/16/17 14:20 RDW 15.8 % (11.5-14.5) H 09/16/17 14:20 Plt Count 217 10^3/uL (120.0-450.0) 09/16/17 14:20 MPV 10.4 fl (7.0-11.0) 09/16/17 14:20 Gran % 74.6 % (50.0-68.0) H 09/16/17 14:20 Lymph % (Auto) 17.3 % (22.0-35.0) L 09/16/17 14:20 Ramsey % (Auto) 7.1 % (1.0-6.0) H 09/16/17 14:20 Eos % (Auto) 0.9 % (1.5-5.0) L 09/16/17 14:20 Baso % (Auto) 0.1 % (0.0-3.0) 09/16/17 14:20 Gran # 6.00 (1.4-6.5) 09/16/17 14:20 Lymph # (Auto) 1.4 (1.2-3.4) 09/16/17 14:20 Ramsey # (Auto) 0.6 (0.1-0.6) 09/16/17 14:20 Eos # (Auto) 0.1 (0.0-0.7) 09/16/17 14:20 Baso # (Auto) 0.01 K/mm3 (0.0-2.0) 09/16/17 14:20 ESR 49 mm/hr (0.0-20.0) H 09/18/17 10:25 PT 12.3 SECONDS (9.4-12.5) 09/16/17 19:11 INR 1.08 (0.93-1.08) 09/16/17 19:11 APTT 30.5 Seconds (25.1-36.5) 09/16/17 19:11 Sodium 145 mmol/L (132-148) 09/16/17 19:11 Potassium 4.2 mmol/L (3.6-5.0) 09/16/17 19:11 Chloride 105 mmol/L (98-107) 09/16/17 19:11 Carbon Dioxide 32 mmol/L (21-33) 09/16/17 19:11 Anion Gap 12 (10-20) 09/16/17 19:11 BUN 10 mg/dL (7-21) 09/16/17 19:11 Creatinine 0.6 mg/dl (0.7-1.2) L 09/16/17 19:11 Est GFR ( Amer) > 60 09/16/17 19:11 Est GFR (Non-Af Amer) > 60 09/16/17 19:11 Random Glucose 108 mg/dL (70-110) 09/16/17 19:11 Lactic Acid 2.7 mmol/L (0.7-2.1) H 09/16/17 19:11 Calcium 8.7 mg/dL (8.4-10.5) 09/16/17 19:11 Total Bilirubin 0.4 mg/dL (0.2-1.3) 09/16/17 19:11 AST 25 U/L (14-36) 09/16/17 19:11 ALT 26 U/L (7-56) 09/16/17 19:11 Alkaline Phosphatase 82 U/L (38-126) 09/16/17 19:11 Troponin I < 0.01 ng/mL D 09/16/17 19:11 NT-Pro-B Natriuret Pep 79.3 pg/mL (0-450) 09/16/17 19:11 Total Protein 6.7 g/dL (5.8-8.3) 09/16/17 19:11 Albumin 3.4 g/dL (3.0-4.8) 09/16/17 19:11 Globulin 3.3 gm/dL 09/16/17 19:11 Albumin/Globulin Ratio 1.0 (1.1-1.8) L 09/16/17 19:11 - Hospital Course Hospital Course: Pt seen and examined. I have reviewed the note of the medical appointment clerk and agree with it. I have discussed the assessment and plan with the resident. I have reviewed the patient's labs and medications. She does not wish to go to [facility] and wanted to speak to daughter. She is willing to go. He LE edema has improved.
[2017-09-20] MEDS: Mupirocin 2% Ointment 15 GM TUBE TOP SCH ×2 (10:51→17:51)
[2017-09-20] MEDS: Nystatin 100,000 Units/gm Topical Pow(15 gm) TOP SCH ×2 (13:00→17:53)
--- NOTE | 2017-09-20 15:26 | CP.PCM.PN ---
Subjective - Date & Time of Evaluation Date of Evaluation: 09/20/17 Time of Evaluation: 12:55 - Subjective Subjective: Afebrile, not in distress. Objective - Vital Signs/Intake and Output Vital Signs (last 24 hours): Temp Pulse Resp BP Pulse Ox 98.4 F 63 18 125/53 L 97 09/20/17 14:00 09/20/17 14:00 09/20/17 14:00 09/20/17 14:00 09/20/17 14:00 Intake and Output: 09/20/17 09/20/17 06:59 18:59 Intake Total 640 960 Balance 640 960 - Medications Medications: Current Medications Acetaminophen (Tylenol 325mg Tab) 650 mg PO Q6H PRN PRN Reason: Pain, moderate (4-7) Aspirin (Ecotrin) 81 mg PO DAILY [facility] Last Admin: 09/20/17 09:32 Dose: 81 mg Atorvastatin Calcium (Lipitor) 10 mg PO [facility] Last Admin: 09/19/17 21:38 Dose: 10 mg Famotidine (Pepcid) 40 mg PO HS [facility] Last Admin: 09/19/17 21:38 Dose: 40 mg Furosemide (Lasix) 40 mg PO BID [facility] Last Admin: 09/20/17 10:51 Dose: 40 mg Heparin Sodium (Porcine) (Heparin) 5,000 units SC Q8 [facility] PRN Reason: Protocol Last Admin: 09/20/17 13:49 Dose: 5,000 units Lactulose (Enulose) 20 gm PO Q6H PRN PRN Reason: Constipation Last Admin: 09/20/17 11:36 Dose: 20 gm Levothyroxine Sodium (Synthroid) 50 mcg PO DAILY [facility] Last Admin: 09/20/17 09:32 Dose: 50 mcg Metoprolol Tartrate (Lopressor) 50 mg PO BID [facility] Last Admin: 09/20/17 09:40 Dose: 50 mg Mupirocin (Bactroban Ointment) 0 gm TOP BID [facility] Last Admin: 09/20/17 10:51 Dose: 1 applic Nystatin (Nystop Topical Powder) 1 gm TOP BID [facility] Oxycodone/Acetaminophen (Percocet 5/325 Mg Tab) 1 tab PO Q6H PRN PRN Reason: Pain, severe (8-10) Stop: 09/23/17 08:55 Last Admin: 09/20/17 09:37 Dose: 1 tab Polyethylene Glycol (Miralax) 17 gm PO BID [facility] Last Admin: 09/20/17 09:32 Dose: 17 gm - Labs Labs: 09/16/17 19:11 PT 12.3 SECONDS (9.4-12.5) 09/16/17 19:11 INR 1.08 (0.93-1.08) 09/16/17 19:11 APTT 30.5 Seconds (25.1-36.5) 09/16/17 19:11 - Constitutional Appears: Non-toxic, Chronically Ill - Head Exam Head Exam: NORMAL INSPECTION - Respiratory Exam Respiratory Exam: Decreased Breath Sounds - Cardiovascular Exam Cardiovascular Exam: +S1, +S2 - GI/Abdominal Exam GI & Abdominal Exam: Soft. absent: Tenderness Assessment and Plan - Assessment and Plan (Free Text) Plan: Assessment right heel blister, with no evidence of peripheral arterial disease lower extremity swelling probably venous stasis HTN tatum's palsy morbid obesity with BMI 57 arthritis S/P cholecystectomy hypothyroidism Plan continue bactroban over the heel blister; reviewed Podiatry evaluation will continue to monitor clinically while the patient is in the hospital
--- NOTE | 2017-09-20 17:14 | CP.PCM.PN ---
Subjective - Date & Time of Evaluation Date of Evaluation: 09/20/17 Time of Evaluation: 17:11 - Subjective Subjective: Podiatry Progress Note- Dr. Edwards/Dr. Mckineny 77 y/o female with PMHx of HTN, hypothyroidism, arthritis, obesity, Ryan's palsy seen at bedside for bilateral lower extremity swelling and right heel DTI. Patient seen resting comfortably in bed, in NAD. Patient reports she is not going home today. Denies acute overnight events. Denies nausea/fever/ shortness of breath/chest pains or chills. No other complaints today. Multipodus boots not on at bedside today.Reports multipodus boots makes her left foot swells up more and does not want to wear them. Objective - Vital Signs/Intake and Output Vital Signs (last 24 hours): Temp Pulse Resp BP Pulse Ox 98.4 F 63 18 125/53 L 97 09/20/17 14:00 09/20/17 14:00 09/20/17 14:00 09/20/17 14:00 09/20/17 14:00 Intake and Output: 09/20/17 09/20/17 06:59 18:59 Intake Total 640 960 Balance 640 960 - Medications Medications: Current Medications Acetaminophen (Tylenol 325mg Tab) 650 mg PO Q6H PRN PRN Reason: Pain, moderate (4-7) Aspirin (Ecotrin) 81 mg PO DAILY [facility] Last Admin: 09/20/17 09:32 Dose: 81 mg Atorvastatin Calcium (Lipitor) 10 mg PO HS [facility] Last Admin: 09/19/17 21:38 Dose: 10 mg Famotidine (Pepcid) 40 mg PO HS [facility] Last Admin: 09/19/17 21:38 Dose: 40 mg Furosemide (Lasix) 40 mg PO BID [facility] Last Admin: 09/20/17 10:51 Dose: 40 mg Heparin Sodium (Porcine) (Heparin) 5,000 units SC Q8 [facility] PRN Reason: Protocol Last Admin: 09/20/17 13:49 Dose: 5,000 units Lactulose (Enulose) 20 gm PO Q6H PRN PRN Reason: Constipation Last Admin: 09/20/17 11:36 Dose: 20 gm Levothyroxine Sodium (Synthroid) 50 mcg PO DAILY [facility] Last Admin: 09/20/17 09:32 Dose: 50 mcg Metoprolol Tartrate (Lopressor) 50 mg PO BID [facility] Last Admin: 09/20/17 09:40 Dose: 50 mg Mupirocin (Bactroban Ointment) 0 gm TOP BID [facility] Last Admin: 09/20/17 10:51 Dose: 1 applic Nystatin (Nystop Topical Powder) 1 gm TOP BID [facility] Oxycodone/Acetaminophen (Percocet 5/325 Mg Tab) 1 tab PO Q6H PRN PRN Reason: Pain, severe (8-10) Stop: 09/23/17 08:55 Last Admin: 09/20/17 09:37 Dose: 1 tab Polyethylene Glycol (Miralax) 17 gm PO BID [facility] Last Admin: 09/20/17 09:32 Dose: 17 gm - Labs Labs: 09/16/17 19:11 PT 12.3 SECONDS (9.4-12.5) 09/16/17 19:11 INR 1.08 (0.93-1.08) 09/16/17 19:11 APTT 30.5 Seconds (25.1-36.5) 09/16/17 19:11 - Constitutional Appears: Well, Non-toxic, No Acute Distress - Extremities Exam Extremities Exam: absent: Calf Tenderness Additional comments: Lower extremity focused exam: Vasc: DP/PT pulses non palpable secondary to edema. Temperature gradient warm to cool. +3 pitting edema noted from tibial tuberosity to dorsum of foot B/L. CFT < 3 sec to all digits Derm: Right plantar heel deep tissue injury noted with no breaks in skin or soft tissue. No open lesions, no erythema, no ecchymosis, no interdigital maceration. No bogginess. No clinical signs of infection. No DTI noted to the left heel. No open lesions noted. Neuro: Protective sensation grossly intact Ortho: Mild tenderness noted upon elevation of legs. No posterior calf tenderness noted to palpation B/L - Neurological Exam Neurological Exam: Alert, Awake - Psychiatric Exam Psychiatric exam: Normal Affect, Normal Mood Assessment and Plan - Assessment and Plan (Free Text) Assessment: 77 y/o female with bilateral lower extremity edema and right heel DTI- stable, not infected Plan: Pt seen and evaluated at bedside Discussed with attending Dr. Edwards Afebrile, absent leukocytosis d/c dion compression for today Arterial dopplers to evaluate LE circulation -PVR waveorms and pressure below knees are relatively normal and symmetric -Right ABIs .88, Left ABIs 1.17 Venous duplex- negative DVT Multipodus to be worn at all times in bed Educated patient the important of wearing multipodus boots at all times Multipodus boots applied to the lower extremity bilaterally
[2017-09-20 23:14] VITALS: RESP 20; O2SAT 96
--- NOTE | 2017-09-21 05:24 | CP.PCM.PN ---
<Gladys Rodrigues - Last Filed: 09/21/17 09:11> Subjective - Date & Time of Evaluation Date of Evaluation: 09/21/17 Time of Evaluation: 06:52 - Subjective Subjective: Medicine Progress Note for Ander Hopper PGY3 Patient seen and examined at bedside. There were no acute overnight events as per nursing staff. Patient reports passing gas, but not having a BM. She denies chest pain, shortness of breath, nausea/vomiting/diarrhea, fever/chills, numbness/tingling, dysuria or hematuria. Objective - Vital Signs/Intake and Output Vital Signs (last 24 hours): Temp Pulse Resp BP Pulse Ox 98.6 F 72 20 120/68 96 09/20/17 23:13 09/20/17 23:13 09/20/17 23:13 09/20/17 23:13 09/20/17 23:13 Intake and Output: 09/20/17 09/21/17 18:59 06:59 Intake Total 960 360 Output Total 800 Balance 960 -440 - Medications Medications: Current Medications Acetaminophen (Tylenol 325mg Tab) 650 mg PO Q6H PRN PRN Reason: Pain, moderate (4-7) Aspirin (Ecotrin) 81 mg PO DAILY [facility] Last Admin: 09/20/17 09:32 Dose: 81 mg Atorvastatin Calcium (Lipitor) 10 mg PO HS [facility] Last Admin: 09/20/17 22:39 Dose: 10 mg Famotidine (Pepcid) 40 mg PO HS [facility] Last Admin: 09/20/17 22:39 Dose: 40 mg Furosemide (Lasix) 40 mg PO BID [facility] Last Admin: 09/20/17 17:59 Dose: 40 mg Heparin Sodium (Porcine) (Heparin) 5,000 units SC Q8 [facility] PRN Reason: Protocol Last Admin: 09/20/17 22:39 Dose: 5,000 units Lactulose (Enulose) 20 gm PO Q6H PRN PRN Reason: Constipation Last Admin: 09/20/17 11:36 Dose: 20 gm Levothyroxine Sodium (Synthroid) 50 mcg PO DAILY [facility] Last Admin: 09/20/17 09:32 Dose: 50 mcg Metoprolol Tartrate (Lopressor) 50 mg PO BID [facility] Last Admin: 09/20/17 17:59 Dose: 50 mg Mupirocin (Bactroban Ointment) 0 gm TOP BID [facility] Last Admin: 09/20/17 17:51 Dose: Not Given Nystatin (Nystop Topical Powder) 1 gm TOP BID [facility] Last Admin: 09/20/17 17:53 Dose: 1 applic Oxycodone/Acetaminophen (Percocet 5/325 Mg Tab) 1 tab PO Q6H PRN PRN Reason: Pain, severe (8-10) Stop: 09/23/17 08:55 Last Admin: 09/20/17 09:37 Dose: 1 tab Polyethylene Glycol (Miralax) 17 gm PO BID [facility] Last Admin: 09/20/17 17:58 Dose: 17 gm - Labs Labs: 09/16/17 19:11 PT 12.3 SECONDS (9.4-12.5) 09/16/17 19:11 INR 1.08 (0.93-1.08) 09/16/17 19:11 APTT 30.5 Seconds (25.1-36.5) 09/16/17 19:11 - Constitutional Appears: No Acute Distress - Head Exam Head Exam: ATRAUMATIC, NORMAL INSPECTION, NORMOCEPHALIC - Eye Exam Eye Exam: Normal appearance, PERRL Pupil Exam: NORMAL ACCOMODATION, PERRL - ENT Exam ENT Exam: Mucous Membranes Moist - Neck Exam Neck Exam: Normal Inspection - Respiratory Exam Respiratory Exam: Clear to Ausculation Bilateral, NORMAL BREATHING PATTERN. absent: Rales, Rhonchi, Wheezes - Cardiovascular Exam Cardiovascular Exam: REGULAR RHYTHM, +S1, +S2. absent: Gallop, Rubs, Murmur - GI/Abdominal Exam GI & Abdominal Exam: Soft, Normal Bowel Sounds. absent: Rigid, Tenderness, Mass , Rebound - Extremities Exam Extremities Exam: Pedal Edema. absent: Calf Tenderness - Neurological Exam Neurological Exam: Alert, Awake, CN II-XII Intact, Oriented x3 - Skin Skin Exam: Dry, Warm Assessment and Plan - Assessment and Plan (Free Text) Assessment: This is a 77yo female with past medical history of HTN, hypothyroidism, ryan's palsy (L), arthritis and obesity who was admitted for 1. Bilateral Leg edema - multifactorial secondary to morbid obesity v. increased salt intake v. venous stasis 2. HTN 3. Hypothyroidism 4. Hx of Ryan's palsy 5. Arthritis 6. Obesity 7. Constipation Plan: Labs and imaging reviewed. Will give mag citrate once for constipation. Will continue medications. Pain is controlled and patient is tolerating diet. Patient will be discharged to [facility] once accepted and bed available. Case seen, discussed and reviewed with Ander Hopper PGY3 <Ata Poe S - Last Filed: 09/21/17 17:14> Objective - Vital Signs/Intake and Output Vital Signs (last 24 hours): Temp Pulse Resp BP Pulse Ox 99 F 77 20 110/60 96 09/21/17 06:00 09/21/17 06:00 09/21/17 06:00 09/21/17 09:50 09/21/17 06:00 Intake and Output: 09/21/17 09/21/17 06:59 18:59 Intake Total 360 Output Total 800 Balance -440 - Labs Labs: 09/16/17 19:11 PT 12.3 SECONDS (9.4-12.5) 09/16/17 19:11 INR 1.08 (0.93-1.08) 09/16/17 19:11 APTT 30.5 Seconds (25.1-36.5) 09/16/17 19:11 Assessment and Plan - Assessment and Plan (Free Text) Plan: Pt seen and examined. I have reviewed the note of the medical screener and agree with it. I have discussed the assessment and plan with the resident. I have reviewed the patient's labs and medications. Pt not accepted to [facility]. She is waiting for another [facility] to go to. Pain is controlled with meds.
[2017-09-21] MEDS: Oxycodone/Acetaminophen 5/325 mg Tab PO PRN (06:53)
[2017-09-21 07:44] VITALS: PULSE 77; TEMP 99
[2017-09-21] MEDS ORDERED: Magnesium Citrate Oral SOL (300 ml) PO ONE (09:14)
[2017-09-21] MEDS: Nystatin 100,000 Units/gm Topical Pow(15 gm) TOP SCH (09:49)
[2017-09-21] MEDS: POLYETHYLENE GLYCOL 3350 17 GM/Dose PACKET PO SCH (09:50)
[2017-09-21] MEDS: Levothyroxine 50 MCG TAB PO SCH (09:50)
[2017-09-21 09:52] VITALS: BP 110/60
[2017-09-21] MEDS: Mupirocin 2% Ointment 15 GM TUBE TOP SCH (09:52)
--- NOTE | 2017-09-21 14:50 | CP.PCM.PN ---
Subjective - Date & Time of Evaluation Date of Evaluation: 09/21/17 Time of Evaluation: 13:00 - Subjective Subjective: Podiatry Progress Note- Dr. Edwards/Dr. Mckinney 77 y/o female with PMHx of HTN, hypothyroidism, arthritis, obesity, Ryan's palsy seen at bedside for bilateral lower extremity swelling and right heel DTI. Patient seen resting comfortably in bed, in NAD. Family member seen at bedside during visitation. Denies acute overnight events. Denies nausea/fever/ shortness of breath/chest pains or chills. No other complaints today. Multipodus on to lower extremity. Reports pain to the right hip to the ankle. Objective - Vital Signs/Intake and Output Vital Signs (last 24 hours): Temp Pulse Resp BP Pulse Ox 99 F 77 20 110/60 96 09/21/17 06:00 09/21/17 06:00 09/21/17 06:00 09/21/17 09:50 09/21/17 06:00 Intake and Output: 09/21/17 09/21/17 06:59 18:59 Intake Total 360 Output Total 800 Balance -440 - Medications Medications: Current Medications Acetaminophen (Tylenol 325mg Tab) 650 mg PO Q6H PRN PRN Reason: Pain, moderate (4-7) Aspirin (Ecotrin) 81 mg PO DAILY [facility] Last Admin: 09/21/17 09:50 Dose: 81 mg Atorvastatin Calcium (Lipitor) 10 mg PO HS [facility] Last Admin: 09/20/17 22:39 Dose: 10 mg Famotidine (Pepcid) 40 mg PO HS [facility] Last Admin: 09/20/17 22:39 Dose: 40 mg Furosemide (Lasix) 40 mg PO BID [facility] Last Admin: 09/21/17 09:50 Dose: 40 mg Heparin Sodium (Porcine) (Heparin) 5,000 units SC Q8 [facility] PRN Reason: Protocol Last Admin: 09/21/17 06:45 Dose: 5,000 units Levothyroxine Sodium (Synthroid) 50 mcg PO DAILY [facility] Last Admin: 09/21/17 09:50 Dose: 50 mcg Metoprolol Tartrate (Lopressor) 50 mg PO BID [facility] Last Admin: 09/21/17 09:50 Dose: 50 mg Mupirocin (Bactroban Ointment) 0 gm TOP BID [facility] Last Admin: 09/21/17 09:52 Dose: 1 applic Nystatin (Nystop Topical Powder) 1 gm TOP BID [facility] Last Admin: 09/21/17 09:49 Dose: 1 applic Oxycodone/Acetaminophen (Percocet 5/325 Mg Tab) 1 tab PO Q6H PRN PRN Reason: Pain, severe (8-10) Stop: 09/23/17 08:55 Last Admin: 09/21/17 06:53 Dose: 1 tab Polyethylene Glycol (Miralax) 17 gm PO BID [facility] Last Admin: 09/21/17 09:50 Dose: 17 gm - Labs Labs: 09/16/17 19:11 PT 12.3 SECONDS (9.4-12.5) 09/16/17 19:11 INR 1.08 (0.93-1.08) 09/16/17 19:11 APTT 30.5 Seconds (25.1-36.5) 09/16/17 19:11 - Constitutional Appears: Well, Non-toxic, No Acute Distress - Extremities Exam Extremities Exam: absent: Calf Tenderness Additional comments: Lower extremity focused exam: Vasc: DP/PT pulses non palpable secondary to edema. Temperature gradient warm to cool. +3 pitting edema noted from tibial tuberosity to dorsum of foot B/L. CFT < 3 sec to all digits Derm: Right plantar heel deep tissue injury noted with no breaks in skin or soft tissue. No open lesions, no erythema, no ecchymosis, no interdigital maceration. No bogginess. No clinical signs of infection. No DTI noted to the left heel. No open lesions noted. Neuro: Protective sensation grossly intact Ortho: Mild tenderness noted upon elevation of legs. No posterior calf tenderness noted to palpation B/L - Neurological Exam Neurological Exam: Alert, Awake Assessment and Plan - Assessment and Plan (Free Text) Assessment: 77 y/o female with bilateral lower extremity edema and right heel DTI- stable, not infected Plan: Pt seen and evaluated at bedside Discussed with attending Dr. Mkcinney Afebrile, absent leukocytosis d/c dion compression for today Arterial dopplers to evaluate LE circulation -PVR waveorms and pressure below knees are relatively normal and symmetric -Right ABIs .88, Left ABIs 1.17 Venous duplex- negative DVT Multipodus to be worn at all times in bed Educated patient the important of wearing multipodus boots at all times Multipodus boots applied to the lower extremity bilaterally Upon discharge patient may follow up with Dr. Mckinney in wound care clinic Continue to wear multipodus boots at home
--- NOTE | 2017-09-22 04:44 | PN ---
DATE: 09/21/2017 SUBJECTIVE: The patient is in bed, in no acute distress. She was seen early this morning in room 563, bed 2. Appeared comfortable. She had an uneventful night. PHYSICAL EXAMINATION: VITAL SIGNS: Temperature is 98, blood pressure is 110/60, respiratory rate of 18. HEENT: Unremarkable. NECK: Supple. LUNGS: Have decreased breath sounds. HEART: Normal S1 and S2. ABDOMEN: Soft. EXTREMITIES: Noted. LABORATORY DATA: White count of 8, hemoglobin of 11. Sed rate is 49. BUN of 10, creatinine of 0.6. Microbiology reveals the blood cultures no growth. ASSESSMENT AND PLAN: This is a 77-year-old female, with a right heel blister noted peripheral arterial disease and hypertension, history of Ryan's palsy with morbid obesity with a body mass index of 60 and off of antibiotics. We will continue local wound care. Harish Varela MD
== END 2017-09-21 16:06 | DRG 603 ==
LOC: ED 12:01 → ERH 15:39 → 5RNO 17:10
PROVIDERS: ADMIT Internal Medicine Nephrology; ATTEND Internal Medicine Nephrology
DX: L03.116 Cellulitis of left lower limb (principal); Z68.43 Body mass index [BMI] 50.0-59.9, adult; L03.115 Cellulitis of right lower limb; D64.9 Anemia, unspecified; E03.9 Hypothyroidism, unspecified; E66.01 Morbid (severe) obesity due to excess calories; G51.0 Bell's palsy; I10 Essential (primary) hypertension; I73.9 Peripheral vascular disease, unspecified; I87.8 Other specified disorders of veins; K59.00 Constipation, unspecified; M15.9 Polyosteoarthritis, unspecified; S90.821A Blister (nonthermal), right foot, initial encounter; Z90.49 Acquired absence of other specified parts of digestive tract

== ENCOUNTER 2017-11-07 12:06 | Inpatient (IN) | payer MEDICARE, MEDICAID ==
--- NOTE | 2017-11-07 13:15 | ED PDOC ---
Arrival/HPI - General Historian: Patient, Family - General Chief Complaint: Abnormal Skin Integrity Time Seen by Provider: 11/07/17 12:10 - History of Present Illness Narrative History of Present Illness (Text): 11/07/17 13:15 77 female, past medical history of HTN, hypothyroidism, ryan's palsy (L), arthritis and morbid obesity, presents to the ED with bed sores. Patient states she was admitted to the hospital September of 2017 due to leg swelling and was discharged to a rehab facility for further treatment. During her rehab stay, she remained bed bound and was unable to work with physical therapy because she felt too weak. She was sent home after completing rehab. At home, she is unable to complete her ADL's and remains bed bound at home secondary to her deconditioning. She does not have a home health nurse or recycler at this time. She began experiencing pain in the lower extremities and is noted to have superficial sores in the medial thighs bilaterally. Patient's daughter is at bedside and feels mother would benefit from a nursing facility or 24 hour recycler. Daughter has been cleaning the wound but lives out of state and cannot provide care all the time. The pain from the wound has worsened over time and is extremely sensitive to palpation and movement. Patient denies fever , chills, headache, dizziness, nausea, vomiting, shortness of breath, chest pain , or urinary symptoms at this time. PMD: Dr. Valdez ([facility]) Past Medical History - Provider Review Nursing Documentation Reviewed: Yes - Infectious Disease Hx of Infectious Diseases: None - Reproductive Menopause: Yes - Cardiac Hx Hypertension: Yes - Pulmonary Hx Respiratory Disorders: No - Neurological Other/Comment: bells palsey- right facial droop - HEENT Hx HEENT Disorder: No - Renal Hx Renal Disorder: No - Endocrine/Metabolic Hx Hypothyroidism: Yes - Hematological/Oncological Hx Blood Disorders: No - Integumentary Hx Dermatological Disorder: Yes (BILATERAL GLUTEAL FOLD WITH SKIN EXCORIATION. IASD) - Musculoskeletal/Rheumatological Hx Arthritis: Yes - Gastrointestinal Hx Gastrointestinal Disorders: Yes Other/Comment: morbid obesity - Genitourinary/Gynecological Hx Genitourinary Disorders: Yes Hx Incontinence: Yes - Psychiatric Hx Psychophysiologic Disorder: No Hx Substance Use: No - Surgical History Hx Cholecystectomy: Yes Other/Comment: ganglion cyst left hand - Anesthesia Hx Anesthesia: Yes Hx Anesthesia Reactions: No Hx Malignant Hyperthermia: No - Suicidal Assessment Feels Threatened In Home Enviroment: No Family/Social History - Physician Review Nursing Documentation Reviewed: Yes Family/Social History: No Known Family HX Smoking Status: Never Smoked Hx Alcohol Use: No Hx Substance Use: No Allergies/Home Meds Allergies/Adverse Reactions: Allergies No Known Allergies Allergy (Verified 09/30/15 14:31) Home Medications: Home Meds Medication Instructions Recorded Confirmed Levothyroxine Sodium 0.1 mg PO DAILY 10/15/14 11/07/17 Metoprolol Tartrate 50 mg PO BID 07/08/15 11/07/17 Atorvastatin [Lipitor] 10 mg PO HS 09/30/15 11/07/17 Aspirin [Ecotrin] 81 mg PO DAILY 09/16/17 11/07/17 hydrALAZINE [hydralazine 25 mg PO DAILY 11/07/17 11/07/17 Hydrochloride] Review of Systems - Physician Review All systems were reviewed & negative as marked: Yes - Review of Systems Constitutional: absent: Fevers Eyes: absent: Vision Changes ENT: absent: Hearing Changes Respiratory: absent: SOB Cardiovascular: absent: Chest Pain, Palpitations Gastrointestinal: absent: Abdominal Pain, Stool Changes Genitourinary Female: absent: Dysuria Musculoskeletal: absent: Arthralgias, Back Pain Skin: Skin Lesions. absent: Abscess, Ulcer, Cellulitis Neurological: absent: Headache, Dizziness Endocrine: absent: Diaphoresis Physical Exam Vital Signs Reviewed: Yes Temperature: Afebrile Blood Pressure: Normal Pulse: Regular Respiratory Rate: Normal Appearance: Positive for: Well-Appearing, Non-Toxic, Other (morbidly obese) Pain Distress: Mild Mental Status: Positive for: Alert and Oriented X 3 - Systems Exam Head: Present: Atraumatic, Normocephalic Pupils: Present: PERRL Extroacular Muscles: Present: EOMI Nose (External): Present: Atraumatic Respiratory/Chest: Present: Clear to Auscultation, Good Air Exchange. No: Respiratory Distress, Accessory Muscle Use Cardiovascular: Present: Regular Rate and Rhythm, Normal S1, S2. No: Murmurs Abdomen: No: Tenderness, Distention, Peritoneal Signs Lower Extremity: Present: CALF TENDERNESS, NORMAL PULSES, Tenderness. No: Edema , Cyanosis Neurological: Present: CN II-XII Intact, Speech Normal Skin: Present: Other (Bilateral medial thigh superficial skin excoriations with no active discharge or bleeding. Warm, tender to palpation) Psychiatric: Present: Alert, Oriented x 3 Vital Signs Temp Pulse Resp BP Pulse Ox 11/07/17 16:41 70 18 98 11/07/17 16:31 98.0 F 70 18 130/70 97 11/07/17 16:10 69 130/70 11/07/17 15:12 68 18 124/61 97 11/07/17 13:40 75 18 126/64 97 11/07/17 12:14 98.4 F 80 18 128/61 97 Medical Decision Making ED Course and Treatment: Patient is a 77 year old female whose past medical history includes hypertension , hypothyroidism, Ryan's Palsy(L), arthritis, and morbid obesity, presenting to the ER with bed sores. Bilateral medial thigh superficial skin excoriations with no active discharge or bleeding. Warm, tender to palpation, as stated in physical examination. Patient Seen With Resident: In agreement with resident note which contains more details about the patient. Patient was seen and evaluated with resident. Came up with plan and treatment together. (Lucio Daniels) 11/07/17 13:28 77F past medical history of HTN, hypothyroidism, ryan's palsy (L), arthritis and obesity, presents to ED with bed sores. Patient unable to complete ADL's on her own. Ordered CBC, CMP, UA, EKG, and CXR. HISTORY: bed sores COMPARISON: Chest x-ray performed 09/16/17 TECHNIQUE: Chest, one view. FINDINGS: LUNGS: Biapical pleural thickening. No focal consolidation. Please note that chest x-ray has limited sensitivity for the detection of pulmonary masses. PLEURA: No significant pleural effusion identified. No definite pneumothorax . CARDIOVASCULAR: Heart size appears top normal. Atherosclerotic calcifications of the aortic knob. OSSEOUS STRUCTURES: Degenerative changes. VISUALIZED UPPER ABDOMEN: Unremarkable. OTHER FINDINGS: None. IMPRESSION: Atherosclerotic calcifications of the aorta. Biapical pleural thickening. Patient will need to be admitted for fci placement. Patient and family at bedside verbalized agreement and understanding of the plan. Case discussed and reviewed with attending provider. (Deacon Locke) - Lab Interpretations Lab Results: 11/07/17 14:25 11/07/17 14:25 Lab Results 11/07/17 14:25: Sodium 140, Potassium 3.4 L, Chloride 95 L, Carbon Dioxide 34 H , Anion Gap 15, BUN 13, Creatinine 0.6 L, Est GFR ( Amer) > 60, Est GFR ( Non-Af Amer) > 60, Random Glucose 111 H, Calcium 9.4, Phosphorus 3.4, Magnesium 2.3 H, Total Bilirubin 0.8, AST 59 H D, ALT 43, Alkaline Phosphatase 126 D, Total Protein 7.8, Albumin 3.9, Globulin 3.9, Albumin/Globulin Ratio 1.0 L 11/07/17 14:25: WBC 9.3, RBC 4.75, Hgb 11.9 L, Hct 37.2, MCV 78.3 L, MCH 25.1, MCHC 32.0, RDW 15.6 H, Plt Count 182, MPV 10.0, Gran % 71.0 H, Lymph % (Auto) 22.4, Pickens % (Auto) 6.1 H, Eos % (Auto) 0.4 L, Baso % (Auto) 0.1, Gran # 6.59 H , Lymph # (Auto) 2.1, Pickens # (Auto) 0.6, Eos # (Auto) 0.0, Baso # (Auto) 0.01 - RAD Interpretation Radiology Orders: 11/07/17 13:25 CHEST PORTABLE [RAD] Stat - Medication Orders Current Medication Orders: Aspirin (Ecotrin) 81 mg PO DAILY [facility] Last Admin: 11/07/17 16:09 Dose: 81 mg Atorvastatin Calcium (Lipitor) 10 mg PO HS [facility] Enoxaparin Sodium (Lovenox) 60 mg SC DAILY [facility] PRN Reason: Protocol Last Admin: 11/07/17 16:37 Dose: Not Given Non-Admin Reason: Patient Refused Subcutaneous Administrations Document 11/07/17 16:37 [facility] (Rec: 11/07/17 16:37 [facility] [id number]) Charges for Administration # of Subcutaneous Administrations 1 Furosemide (Lasix) 40 mg IVP BID [facility] Hydralazine HCl (Apresoline) 25 mg PO DAILY [facility] Last Admin: 11/07/17 16:10 Dose: 25 mg MAR Pulse and Blood Pressure Document 11/07/17 16:10 [facility] (Rec: 11/07/17 16:10 [facility] [id number]) Pulse Pulse Rate (60-90) 69 Blood Pressure Blood Pressure (100/60-150/90) 130/70 Ceftriaxone Sodium (Rocephin 1 Gram Ivpb) 1 gm in 100 mls @ 100 mls/hr IVPB DAILY [facility] PRN Reason: Protocol Last Admin: 11/07/17 16:08 Dose: 100 mls/hr eMAR Start Stop Document 11/07/17 16:08 [email or web address] (Rec: 11/07/17 16:08 [facility] [id number]) Intravenous Solution Start Date 11/07/17 Start Time 16:08 Levothyroxine Sodium (Synthroid) 100 mcg PO DAILY [facility] Metoprolol Tartrate (Lopressor) 50 mg PO BRKDIN [facility] Potassium Chloride (K-Dur 20 Meq Er Tab) 20 meq PO DAILY [facility] Discontinued Medications Morphine Sulfate (Morphine) 1 mg IVP STAT STA Stop: 11/07/17 16:13 Last Admin: 11/07/17 16:27 Dose: 1 mg MAR Pain Assessment Document 11/07/17 16:27 [facility] (Rec: 11/07/17 16:27 [facility] [id number]) Pain Reassessment Is this a pain reassessment? No Sleep Is patient sleeping during reassessment? No Presence of Pain Presence of Pain Yes Pain Scale Used Pain Scale Used Numeric Location Pain Location Body Site Generalized Description Description Constant Intensity of Pain at present 8 Pain Behavior Facial Grimacing Aggravating Factors Changing Position Alleviating Factors/Management Heat Techniques Alleviating Factors Position Change IVP Administration Document 11/07/17 16:27 [email or web address] (Rec: 11/07/17 16:27 [facility] [id number]) Charges for Administration # of IVP Administrations 1 Potassium Chloride (K-Dur 20 Meq Er Tab) 40 meq PO STAT [facility] Stop: 11/07/17 15:11 Last Admin: 11/07/17 16:24 Dose: Not Given Non-Admin Reason: Patient Refused Disposition/Present on Arrival - Present on Arrival Any Indicators Present on Arrival: Yes History of DVT/PE: No History of Uncontrolled Diabetes: No Urinary Catheter: No History of Decub. Ulcer: Yes History Surgical Site Infection Following: None - Disposition Have Diagnosis and Disposition been Completed?: Yes Disposition Time: 17:34 Patient Plan: Admission - Disposition Diagnosis: Bed sore Disposition: HOSPITALIZED Condition: STABLE
--- NOTE | 2017-11-07 14:23 | RAD ---
HISTORY: bed sores COMPARISON: Chest x-ray performed 09/16/17 TECHNIQUE: Chest, one view. FINDINGS: LUNGS: Biapical pleural thickening. No focal consolidation. Please note that chest x-ray has limited sensitivity for the detection of pulmonary masses. PLEURA: No significant pleural effusion identified. No definite pneumothorax . CARDIOVASCULAR: Heart size appears top normal. Atherosclerotic calcifications of the aortic knob. OSSEOUS STRUCTURES: Degenerative changes. VISUALIZED UPPER ABDOMEN: Unremarkable. OTHER FINDINGS: None. IMPRESSION: Atherosclerotic calcifications of the aorta. Biapical pleural thickening.
[2017-11-07 14:49] LABS: BASO # 0.01 K/mm3 (0.0-2.0); BASO % 0.1 % (0.0-3.0); EOS % 0.4 % (1.5-5.0); GRAN # 6.59 (1.4-6.5); HEMOGLOBIN 11.9 g/dL (12.0-16.0); LYMPH # 2.1 (1.2-3.4); LYMPH % 22.4 % (22.0-35.0); MEAN CELL VOLUME 78.3 fl (80.0-105.0); MEAN CORPUSCULAR HEMOGLOBIN 25.1 pg (25.0-35.0); MONO # 0.6 (0.1-0.6); MONO % 6.1 % (1.0-6.0); RBC 4.75 10^6/uL (3.5-6.1); RED CELL DISTRIBUTION WIDTH 15.6 % (11.5-14.5); WHITE BLOOD COUNT 9.3 10^3/ul (4.5-11.0)
[2017-11-07 14:59] LABS: ALBUMIN 3.9 g/dL (3.0-4.8); ALT/SGPT 43 U/L (7-56); AST/SGOT 59 U/L (14-36); BLOOD UREA NITROGEN 13 mg/dL (7-21); CALCIUM 9.4 mg/dL (8.4-10.5); GFR NON-AFRICAN AMERICAN > 60
[2017-11-07] MEDS: Enoxaparin 60 mg Syringe SC SCH ×2 (16:08→16:37)
[2017-11-07] MEDS: cefTRIAXone 1 gm 1 GM/100 ML BAG IVPB SCH (16:08)
[2017-11-07] MEDS: Potassium Chloride 20 mEq ER Tab PO STA ×2 (16:09→16:24)
[2017-11-07] MEDS ORDERED: Morphine 2 mg/ml ISec IVP STA (16:12)
[2017-11-07] MEDS ORDERED: METOPROLOL TARTRATE 50 MG PO SCH (18:00)
[2017-11-07 19:09] VITALS: BMI 53.1
--- NOTE | 2017-11-08 | HP ---
Copied To: Rivka Carney MD Attending MD: Rivka Carney MD HISTORY OF PRESENT ILLNESS: The patient is 77 years old, who was brought to emergency room because of worsening leg edema, worsening back sores, leg sores. The patient was admitted in 09/2017 with a similar complaint. Because of the patient's morbid obesity, she was not very keen to ambulate, so when she was transferred to rehab on 09/20/2017 to [facility], did not participate in therapy as much. Had wound care done and was discharged home, but even at home she is mostly bed bound and her wounds have gotten worse, so family brought her to emergency room because they do not care for her anymore. Denies any fever or chills. No history of nausea or vomiting. No chest pain. No shortness of breath. PAST MEDICAL HISTORY: She has past medical history significant for, 1. Hypertension. 2. Hypothyroidism. 3. History of Ryan's palsy with left-sided weakness. 4. Generalized osteoarthritis. 6. Chronic leg edema. PAST SURGICAL HISTORY: Significant for, 1. Cholecystectomy. 2. History of left hand ganglion cyst removed. ALLERGIES: SHE IS NOT ALLERGIC TO ANY MEDICATION. MEDICATIONS AT HOME: She is on metoprolol 50 mg twice a day, Levothyroxine 100 mcg daily, Lipitor 10 mg at bedtime, aspirin 81 daily, hydralazine 25 daily. REVIEW OF SYSTEMS: The patient is morbidly obese with bilateral leg swelling and chronic stasis dermatitis. PHYSICAL EXAMINATION: GENERAL: She is awake, alert, oriented, communicative. VITAL SIGNS: She is afebrile, pulse 80, respirations 18, blood pressure 126/64. LUNGS: Bilateral fair airflow. No rhonchi or crackle. HEART: S1 and S2 audible. ABDOMEN: Soft, obese. Nontender. No rebound. No guarding. NEUROLOGICAL: The patient is awake, alert, oriented. EXTREMITIES: Bilateral legs, edema with erythema with multiple ulcers. Positive sacral decubitus at different stages. LABORATORY EXAM: WBC is 9.3, hemoglobin 11.9, hematocrit 37.2, platelets 182. Chemistry: Sodium 140, potassium 3.4, chloride 95, CO2 of 34, BUN 13, creatinine 0.6, blood sugar 111. LFTs are within normal limit. Alk phos 126. ASSESSMENT: 1. Morbid obesity. 2. Bilateral leg edema with erythema. 3. Hypertension. 4. Hyperlipidemia. 5. Hypothyroidism. 6. Deconditioning and difficulty walking. PLAN: The patient will be admitted on Med-Surg. We will start her on IV diuretic. We will get Podiatry consult for wound care. We will follow up her electrolyte and we will reevaluate the patient in the a.m. Rivka Carney MD
[2017-11-08 07:25] LABS: BASO # 0.03 K/mm3 (0.0-2.0); BASO % 0.4 % (0.0-3.0); EOS # 0.1 (0.0-0.7); EOS % 1.8 % (1.5-5.0); GRAN # 4.02 (1.4-6.5); GRAN % 56.5 % (50.0-68.0); HEMOGLOBIN 11.2 g/dL (12.0-16.0); LYMPH # 2.4 (1.2-3.4); LYMPH % 33.1 % (22.0-35.0); MEAN CELL VOLUME 78.2 fl (80.0-105.0); MEAN CORPUSCULAR HEMOGLOBIN 24.7 pg (25.0-35.0); MEAN CORPUSCULAR HGB CONC 31.5 g/dl (31.0-37.0); MEAN PLATELET VOLUME 10.5 fl (7.0-11.0); MONO # 0.6 (0.1-0.6); MONO % 8.2 % (1.0-6.0); RBC 4.54 10^6/uL (3.5-6.1); RED CELL DISTRIBUTION WIDTH 15.8 % (11.5-14.5); WHITE BLOOD COUNT 7.1 10^3/ul (4.5-11.0)
[2017-11-08 07:50] LABS: ALBUMIN 3.2 g/dL (3.0-4.8); ALT/SGPT 43 U/L (7-56); AST/SGOT 71 U/L (14-36); BLOOD UREA NITROGEN 12 mg/dL (7-21); CALCIUM 8.8 mg/dL (8.4-10.5); GFR NON-AFRICAN AMERICAN > 60
[2017-11-08] MEDS: cefTRIAXone 1 gm 1 GM/100 ML BAG IVPB SCH (09:44)
[2017-11-08] MEDS: Enoxaparin 60 mg Syringe SC SCH (09:44)
[2017-11-08] MEDS: Levothyroxine 100 MCG TAB PO SCH (09:45)
[2017-11-08] MEDS: Potassium Chloride 20 mEq ER Tab PO SCH (09:46)
[2017-11-08 12:19] LABS: PH,URINE 6.5 (4.7-8.0); URINE BILIRUBIN NEGATIVE (NEGATIVE); URINE BLOOD NEGATIVE (NEGATIVE); URINE GLUCOSE (UA) NEGATIVE (NEGATIVE); URINE LEUKOCYTE ESTERASE MODERATE Leu/uL (NEGATIVE); URINE PROTEIN NEGATIVE mg/dL (<30 mg/dL)
[2017-11-08 12:22] LABS: URINE APPEARANCE CLEAR (CLEAR); URINE COLOR YELLOW (YELLOW)
--- NOTE | 2017-11-08 12:22 | CP.PCM.CON ---
<Maite Tim - Last Filed: 11/08/17 12:17> History of Present Illness - History of Present Illness History of Present Illness: Podiatry consult note for Dr. Edwards 77 y/o female with PMHx of HTN, hypothyroidism, tatum's palsy (Left-sided), arthritis and morbid obesity seen and evaluated at bedside for bilateral heel wounds. Patient was resting in bed, and in no acute distress. As per medicine note, patient has been admitted to the hospital for halfway placement. Patient denied any pain to her feet, and patient denies any F/N/V/SOB/chills. Review of Systems - Review of Systems All systems: reviewed and no additional remarkable complaints except Review of Systems: As per HPI Past Patient History - Infectious Disease Hx of Infectious Diseases: None - Past Social History Smoking Status: Never Smoked - CARDIAC Hx Hypertension: Yes - PULMONARY Hx Respiratory Disorders: No - NEUROLOGICAL Other/Comment: bells palsey- right facial droop - HEENT Hx HEENT Problems: No - RENAL Hx Chronic Kidney Disease: No - ENDOCRINE/METABOLIC Hx Hypothyroidism: Yes - HEMATOLOGICAL/ONCOLOGICAL Hx Blood Disorders: No - INTEGUMENTARY Hx Dermatological Problems: Yes (BILATERAL GLUTEAL FOLD WITH SKIN EXCORIATION. IASD) - MUSCULOSKELETAL/RHEUMATOLOGICAL Hx Falls: No - GASTROINTESTINAL Hx Gastrointestinal Disorders: Yes Other/Comment: morbid obesity - GENITOURINARY/GYNECOLOGICAL Hx Genitourinary Disorders: Yes Hx Incontinence: Yes - PSYCHIATRIC Hx Psychophysiologic Disorder: No - SURGICAL HISTORY Hx Cholecystectomy: Yes Other/Comment: ganglion cyst left hand - ANESTHESIA Hx Anesthesia: Yes Hx Anesthesia Reactions: No Hx Malignant Hyperthermia: No Meds Allergies/Adverse Reactions: Allergies Allergy/AdvReac Type Severity Reaction Status Date / Time No Known Allergies Allergy Verified 09/30/15 14:31 - Medications Medications: Current Medications Aspirin (Ecotrin) 81 mg PO DAILY [facility] Last Admin: 11/08/17 09:45 Dose: 81 mg Atorvastatin Calcium (Lipitor) 10 mg PO HS [facility] Last Admin: 11/07/17 21:03 Dose: Not Given Enoxaparin Sodium (Lovenox) 60 mg SC DAILY [facility] PRN Reason: Protocol Last Admin: 11/08/17 09:44 Dose: 60 mg Furosemide (Lasix) 40 mg IVP BID [facility] Last Admin: 11/08/17 09:44 Dose: 40 mg Hydralazine HCl (Apresoline) 25 mg PO DAILY [facility] Last Admin: 11/08/17 09:45 Dose: 25 mg Ceftriaxone Sodium (Rocephin 1 Gram Ivpb) 1 gm in 100 mls @ 100 mls/hr IVPB DAILY [facility] PRN Reason: Protocol Last Admin: 11/08/17 09:44 Dose: 100 mls/hr Levothyroxine Sodium (Synthroid) 100 mcg PO DAILY [facility] Last Admin: 11/08/17 09:45 Dose: 100 mcg Metoprolol Tartrate (Lopressor) 50 mg PO BRKDIN [facility] Last Admin: 11/08/17 09:46 Dose: 50 mg Potassium Chloride (K-Dur 20 Meq Er Tab) 20 meq PO DAILY [facility] Last Admin: 11/08/17 09:46 Dose: 20 meq Physical Exam - Constitutional Appears: Well, Non-toxic, No Acute Distress - Head Exam Head Exam: ATRAUMATIC, NORMOCEPHALIC - Extremities Exam Additional comments: Lower Extremity Exam- VASC: DP and PT faintly palpable, CFT less than 3 seconds X 10, TG within normal limits NEURO: grossly intact DERM: xerosis noted to bilateral lower extremities, pre-ulcerative lesions noted to bilateral heels, no open wounds to the heels, no drainage, no malodor, no fluctuance, no erythema, no edema, no signs of infection; skin blisters noted to the 2nd and 3rd digits of the right foot with minimal erythema ORTHO: no pain upon palpation of the heels bilaterally - Neurological Exam Neurological exam: Alert, Oriented x3 - Psychiatric Exam Psychiatric exam: Normal Affect, Normal Mood Results - Vital Signs Recent Vital Signs: Last Vital Signs Temp 98.6 F 11/08/17 07:40 Pulse 88 11/08/17 09:46 Resp 18 11/08/17 07:40 BP 112/54 L 11/08/17 09:46 Pulse Ox 96 11/08/17 07:40 - Labs Result Diagrams: 11/08/17 06:30 11/08/17 06:30 Labs: Laboratory Results - last 24 hr 11/08/17 11/08/17 06:30 06:30 WBC 7.1 D RBC 4.54 Hgb 11.2 L Hct 35.5 L MCV 78.2 L MCH 24.7 L MCHC 31.5 RDW 15.8 H Plt Count 212 MPV 10.5 Gran % 56.5 Lymph % (Auto) 33.1 Dukes % (Auto) 8.2 H Eos % (Auto) 1.8 Baso % (Auto) 0.4 Gran # 4.02 Lymph # (Auto) 2.4 Dukes # (Auto) 0.6 Eos # (Auto) 0.1 Baso # (Auto) 0.03 Sodium 139 Potassium 3.2 L Chloride 96 L Carbon Dioxide 34 H Anion Gap 13 BUN 12 Creatinine 0.6 L Est GFR ( Amer) > 60 Est GFR (Non-Af Amer) > 60 Random Glucose 103 Calcium 8.8 Total Bilirubin 0.8 AST 71 H D ALT 43 Alkaline Phosphatase 111 Total Protein 6.4 Albumin 3.2 Globulin 3.3 Albumin/Globulin Ratio 1.0 L Assessment & Plan - Assessment and Plan (Free Text) Assessment: 7 y/o female with PMHx of HTN, hypothyroidism, tatum's palsy (Left-sided), arthritis and morbid obesity seen and evaluated at bedside for bilateral heel wounds Plan: Patient seen and evaluated with Dr. Edwards Chart, labs and vitals were reviewed- WBC 7.1, afebrile Ordered LacHydrin cream for bilateral lower extremities due to xerosis Ordered Bilateral Multipodus boots for patient Optifoam pads applied to bilateral heels and gauze applied to blisters of the right toes Podiatry will return on Wednesday11/09/17 to debride toenails X 10 Podiatry will continue to follow patient while in house No plan for surgical intervention at this time Thank you for the podiatry consult - Date & Time Date: 11/08/17 Time: 12:25 <Dolly Edwards - Last Filed: 11/08/17 14:42> Meds - Medications Medications: Current Medications Aspirin (Ecotrin) 81 mg PO DAILY [facility] Last Admin: 11/08/17 09:45 Dose: 81 mg Atorvastatin Calcium (Lipitor) 10 mg PO HS [facility] Last Admin: 11/07/17 21:03 Dose: Not Given Enoxaparin Sodium (Lovenox) 60 mg SC DAILY [facility] PRN Reason: Protocol Last Admin: 11/08/17 09:44 Dose: 60 mg Furosemide (Lasix) 40 mg IVP BID [facility] Last Admin: 11/08/17 09:44 Dose: 40 mg Hydralazine HCl (Apresoline) 25 mg PO DAILY [facility] Last Admin: 11/08/17 09:45 Dose: 25 mg Ceftriaxone Sodium (Rocephin 1 Gram Ivpb) 1 gm in 100 mls @ 100 mls/hr IVPB DAILY [facility] PRN Reason: Protocol Last Admin: 11/08/17 09:44 Dose: 100 mls/hr Potassium Chloride (Potassium Chloride 10 Meq/100 Ml) 10 meq in 100 mls @ 50 mls/hr IVPB Q2H [facility] Stop: 11/08/17 16:44 Last Admin: 11/08/17 13:43 Dose: 50 mls/hr Lactic Acid (Lac-Hydrin 12% Cream (140 G)) 0 ea TOP DAILY [facility] Levothyroxine Sodium (Synthroid) 100 mcg PO DAILY [facility] Last Admin: 11/08/17 09:45 Dose: 100 mcg Metoprolol Tartrate (Lopressor) 50 mg PO BRKDIN [facility] Last Admin: 11/08/17 09:46 Dose: 50 mg Nystatin (Nystop Topical Powder) 0 gm TOP BID [facility] Potassium Chloride (K-Dur 20 Meq Er Tab) 20 meq PO DAILY [facility] Last Admin: 11/08/17 09:46 Dose: 20 meq Results - Vital Signs Recent Vital Signs: Last Vital Signs Temp 98.6 F 11/08/17 07:40 Pulse 88 11/08/17 09:46 Resp 18 11/08/17 07:40 BP 112/54 L 11/08/17 09:46 Pulse Ox 96 11/08/17 07:40 - Labs Result Diagrams: 11/08/17 06:30 11/08/17 06:30 Labs: Laboratory Results - last 24 hr 11/08/17 11/08/17 11/08/17 06:30 06:30 11:58 WBC 7.1 D RBC 4.54 Hgb 11.2 L Hct 35.5 L MCV 78.2 L MCH 24.7 L MCHC 31.5 RDW 15.8 H Plt Count 212 MPV 10.5 Gran % 56.5 Lymph % (Auto) 33.1 Dukes % (Auto) 8.2 H Eos % (Auto) 1.8 Baso % (Auto) 0.4 Gran # 4.02 Lymph # (Auto) 2.4 Dukes # (Auto) 0.6 Eos # (Auto) 0.1 Baso # (Auto) 0.03 Sodium 139 Potassium 3.2 L Chloride 96 L Carbon Dioxide 34 H Anion Gap 13 BUN 12 Creatinine 0.6 L Est GFR ( Amer) > 60 Est GFR (Non-Af Amer) > 60 Random Glucose 103 Calcium 8.8 Total Bilirubin 0.8 AST 71 H D ALT 43 Alkaline Phosphatase 111 Total Protein 6.4 Albumin 3.2 Globulin 3.3 Albumin/Globulin Ratio 1.0 L Urine Color Yellow Urine Appearance Clear Urine pH 6.5 Ur Specific Perley 1.015 Urine Protein Negative Urine Glucose (UA) Negative Urine Ketones Negative Urine Blood Negative Urine Nitrate Negative Urine Bilirubin Negative Urine Urobilinogen 1.0 H Ur Leukocyte Esterase Moderate H Urine RBC 1 - 3 Urine WBC 10 - 15 Ur Epithelial Cells Many Amorphous Sediment Few Urine Other Fiber Attending/Attestation - Attestation I have personally seen and examined this patient.: Yes I have fully participated in the care of the patient.: Yes I have reviewed all pertinent clinical information: Yes
[2017-11-08] MEDS ORDERED: Potassium Chloride 40 mEq/30 ml LIQ UD PO ONE (12:37)
[2017-11-08 13:45] LABS: URINE AMORPHOUS SEDIMENT FEW; URINE EPITHELIAL CELLS MANY /hpf (0-5)
[2017-11-08] MEDS: Nystatin 100,000 Units/gm Topical Pow(15 gm) TOP SCH (17:19)
--- NOTE | 2017-11-08 17:31 | PN ---
Copied To: Rivka Carney MD Attending MD: Rivka Carney MD DATE: 11/08/2017 SUBJECTIVE: The patient is a 77-year-old black female, seen and examined. She is morbidly obese. Does not seem to be in any distress. According to nurse, she has urinary incontinence. She has laceration of the back of her thigh skin. Complained of pain in both legs along with the leg swelling. She also has bilateral heel wound. PHYSICAL EXAMINATION: GENERAL: She is awake and alert, able to communicate. VITAL SIGNS: She is afebrile, pulse 100, respirations 20, blood pressure 128/53. LUNGS: Bilateral fair airflow. No rhonchi or crackle. HEART: S1 and S2 audible. ABDOMEN: Soft, obese, nontender. No rebound. No guarding. NEUROLOGICAL: She is awake and alert, able to answer simple questions. EXTREMITIES: Bilateral leg edema. She has laceration and desquamation of the skin in the sacral area and back on the thighs. LABORATORY EXAM: WBC 7.1, hemoglobin 11.2, hematocrit 35.5, platelet 212. Chemistry: Sodium 139, potassium 3.2, chloride 96, CO2 of 31, BUN 12, creatinine 0.6, blood sugar 103, AST 71. ASSESSMENT: 1. Bilateral heel ulcer, bilateral thigh desquamation of back of thigh skin. 2. Morbid obesity. 3. Deconditioning and difficulty walking. 4. History of Ryan's palsy. 5. Hypertension. 6. Hypothyroidism. 7. Hypokalemia. PLAN: Currently, the patient is on DVT prophylaxis. She is getting p.o. 40 mEq and 2 riders of 10 mEq of potassium. We will continue her on levothyroxine. Dr. Edwards is taking care of her wounds. The patient needs supportive care and good back care. I discussed with the patient's nurse. The patient will be mobilized every 2 hours to be on her sides and we will catheterize the patient to give chance for her perineal wounds to heal. Rivka Carney MD
--- NOTE | 2017-11-08 22:12 | CARD ---
APPROVED REPORT Date of service: 11/07/2017 EKG Measurement Heart [id number] <Conclusion> Sinus rhythm with premature atrial complexes Possible Anterolateral infarct, age undetermined Abnormal ECG
[2017-11-09 08:25] LABS: BLOOD UREA NITROGEN 10 mg/dL (7-21); CALCIUM 8.6 mg/dL (8.4-10.5); GFR NON-AFRICAN AMERICAN > 60
[2017-11-09] MEDS: cefTRIAXone 1 gm 1 GM/100 ML BAG IVPB SCH (09:27)
[2017-11-09] MEDS: Enoxaparin 60 mg Syringe SC SCH (09:28)
[2017-11-09] MEDS: Levothyroxine 100 MCG TAB PO SCH (09:29)
[2017-11-09] MEDS: Potassium Chloride 20 mEq ER Tab PO SCH (09:29)
[2017-11-09] MEDS: Nystatin 100,000 Units/gm Topical Pow(15 gm) TOP SCH ×2 (10:10→17:14)
[2017-11-09] MEDS: Ammonium Lactate 12% Cream (140 g) TOP SCH (10:11)
[2017-11-09] MEDS ORDERED: guaiFENesin DM 200 mg-20 mg/10 ml UD PO PRN (10:31)
[2017-11-09] MEDS ORDERED: Potassium Chloride 20 mEq ER Tab PO STA (11:48)
--- NOTE | 2017-11-09 12:04 | CP.PCM.PN ---
<Marky Servin - Last Filed: 11/09/17 11:49> Subjective - Date & Time of Evaluation Date of Evaluation: 11/09/17 Time of Evaluation: 11:49 - Subjective Subjective: 1. B/l heel ulcers 2. Sarcal wound 3. Morbid obesity 4. Hypokalemia 5. Deconditioning 6. Hypothyroidism Patient will continue on Rocephin for her wounds. Patient is being followed by podiatry who are treating the wounds on b/l heels. Patient is currently with a boot on her left leg. Patient encouraged to work with physical therapy. Patient will be give potassium chloride 40 mg PO for hypokalemia. Patient will also be placed on DVT prophylaxis. Continue current medical regimen and will monitor closely. Gareth PGY-3 Objective - Vital Signs/Intake and Output Vital Signs (last 24 hours): Temp Pulse Resp BP Pulse Ox 98.2 F 60 18 105/60 95 11/09/17 08:14 11/09/17 09:29 11/09/17 08:14 11/09/17 09:29 11/09/17 08:14 Intake and Output: 11/09/17 11/09/17 06:59 18:59 Intake Total 900 Output Total 1425 Balance -525 - Medications Medications: Current Medications Aspirin (Ecotrin) 81 mg PO DAILY [facility] Last Admin: 11/09/17 09:29 Dose: 81 mg Atorvastatin Calcium (Lipitor) 10 mg PO HS [facility] Last Admin: 11/08/17 21:06 Dose: Not Given Enoxaparin Sodium (Lovenox) 60 mg SC DAILY [facility] PRN Reason: Protocol Last Admin: 11/09/17 09:28 Dose: 60 mg Furosemide (Lasix) 40 mg IVP BID [facility] Last Admin: 11/09/17 09:28 Dose: 40 mg Guaifenesin/Dextromethorphan (Robitussin Dm) 10 ml PO Q4H PRN PRN Reason: Cough Hydralazine HCl (Apresoline) 25 mg PO DAILY [facility] Last Admin: 11/09/17 09:29 Dose: 25 mg Ceftriaxone Sodium (Rocephin 1 Gram Ivpb) 1 gm in 100 mls @ 100 mls/hr IVPB DAILY [facility] PRN Reason: Protocol Stop: 11/11/17 10:59 Last Admin: 11/09/17 09:27 Dose: 100 mls/hr Lactic Acid (Lac-Hydrin 12% Cream (140 G)) 0 ea TOP DAILY [facility] Levothyroxine Sodium (Synthroid) 100 mcg PO DAILY [facility] Last Admin: 11/09/17 09:29 Dose: 100 mcg Metoprolol Tartrate (Lopressor) 50 mg PO BRKDIN [facility] Last Admin: 11/09/17 09:29 Dose: 50 mg Nystatin (Nystop Topical Powder) 0 gm TOP BID [facility] Last Admin: 11/08/17 17:19 Dose: 1 appl Potassium Chloride (K-Dur 20 Meq Er Tab) 20 meq PO DAILY [facility] Last Admin: 11/09/17 09:29 Dose: 20 meq Potassium Chloride (K-Dur 20 Meq Er Tab) 40 meq PO STAT [facility] Stop: 11/09/17 11:49 - Labs Labs: 11/08/17 06:30 11/09/17 08:00 <Rivka Carney - Last Filed: 11/09/17 13:15> Objective - Vital Signs/Intake and Output Vital Signs (last 24 hours): Temp Pulse Resp BP Pulse Ox 98.2 F 60 18 105/60 95 11/09/17 08:14 11/09/17 09:29 11/09/17 08:14 11/09/17 09:29 11/09/17 08:14 Intake and Output: 11/09/17 11/09/17 06:59 18:59 Intake Total 900 860 Output Total 1425 1000 Balance -525 -140 - Medications Medications: Current Medications Aspirin (Ecotrin) 81 mg PO DAILY [facility] Last Admin: 11/09/17 09:29 Dose: 81 mg Atorvastatin Calcium (Lipitor) 10 mg PO HS [facility] Last Admin: 11/08/17 21:06 Dose: Not Given Enoxaparin Sodium (Lovenox) 60 mg SC DAILY [facility] PRN Reason: Protocol Last Admin: 11/09/17 09:28 Dose: 60 mg Furosemide (Lasix) 40 mg IVP BID [facility] Last Admin: 11/09/17 09:28 Dose: 40 mg Guaifenesin/Dextromethorphan (Robitussin Dm) 10 ml PO Q4H PRN PRN Reason: Cough Hydralazine HCl (Apresoline) 25 mg PO DAILY [facility] Last Admin: 09/04/18 09:29 Dose: 25 mg Ceftriaxone Sodium (Rocephin 1 Gram Ivpb) 1 gm in 100 mls @ 100 mls/hr IVPB DAILY [facility] PRN Reason: Protocol Stop: 11/11/17 10:59 Last Admin: 11/09/17 09:27 Dose: 100 mls/hr Lactic Acid (Lac-Hydrin 12% Cream (140 G)) 0 ea TOP DAILY [facility] Levothyroxine Sodium (Synthroid) 100 mcg PO DAILY [facility] Last Admin: 11/09/17 09:29 Dose: 100 mcg Metoprolol Tartrate (Lopressor) 50 mg PO BRKDIN [facility] Last Admin: 11/09/17 09:29 Dose: 50 mg Nystatin (Nystop Topical Powder) 0 gm TOP BID [facility] Last Admin: 11/08/17 17:19 Dose: 1 appl Potassium Chloride (K-Dur 20 Meq Er Tab) 20 meq PO DAILY [facility] Last Admin: 11/09/17 09:29 Dose: 20 meq - Labs Labs: 11/08/17 06:30 11/09/17 08:00 Assessment and Plan - Assessment and Plan (Free Text) Plan: d/w resident, agree with plan/PT evalluation done,plan for subacute rehab andwound care
--- NOTE | 2017-11-09 12:48 | CP.PCM.PN ---
<Erin Lambert - Last Filed: 11/09/17 12:39> Subjective - Date & Time of Evaluation Date of Evaluation: 11/09/17 Time of Evaluation: 12:39 - Subjective Subjective: Podiatry Progress Note - Drs. Edwards/Hank 77 year old female seen and evaluated this AM for elongated nails x10. Patient resting comfortably, hemodynamically stable and NAD. No acute events overnight. Patient would like her nails trimmed today and is unable to do them herself. Offers no other pedal complaints. Objective - Vital Signs/Intake and Output Vital Signs (last 24 hours): Temp Pulse Resp BP Pulse Ox 98.2 F 60 18 105/60 95 11/09/17 08:14 11/09/17 09:29 11/09/17 08:14 11/09/17 09:29 11/09/17 08:14 Intake and Output: 11/09/17 11/09/17 06:59 18:59 Intake Total 900 860 Output Total 1425 1000 Balance -525 -140 - Medications Medications: Current Medications Aspirin (Ecotrin) 81 mg PO DAILY [facility] Last Admin: 11/09/17 09:29 Dose: 81 mg Atorvastatin Calcium (Lipitor) 10 mg PO HS [facility] Last Admin: 11/08/17 21:06 Dose: Not Given Enoxaparin Sodium (Lovenox) 60 mg SC DAILY [facility] PRN Reason: Protocol Last Admin: 11/09/17 09:28 Dose: 60 mg Furosemide (Lasix) 40 mg IVP BID [facility] Last Admin: 11/09/17 09:28 Dose: 40 mg Guaifenesin/Dextromethorphan (Robitussin Dm) 10 ml PO Q4H PRN PRN Reason: Cough Hydralazine HCl (Apresoline) 25 mg PO DAILY [facility] Last Admin: 11/09/17 09:29 Dose: 25 mg Ceftriaxone Sodium (Rocephin 1 Gram Ivpb) 1 gm in 100 mls @ 100 mls/hr IVPB DAILY [facility] PRN Reason: Protocol Stop: 11/11/17 10:59 Last Admin: 11/09/17 09:27 Dose: 100 mls/hr Lactic Acid (Lac-Hydrin 12% Cream (140 G)) 0 ea TOP DAILY [facility] Levothyroxine Sodium (Synthroid) 100 mcg PO DAILY [facility] Last Admin: 11/09/17 09:29 Dose: 100 mcg Metoprolol Tartrate (Lopressor) 50 mg PO BRKDIN [facility] Last Admin: 11/09/17 09:29 Dose: 50 mg Nystatin (Nystop Topical Powder) 0 gm TOP BID [facility] Last Admin: 11/08/17 17:19 Dose: 1 appl Potassium Chloride (K-Dur 20 Meq Er Tab) 20 meq PO DAILY [facility] Last Admin: 11/09/17 09:29 Dose: 20 meq - Labs Labs: 11/08/17 06:30 11/09/17 08:00 - Constitutional Appears: Well, Non-toxic, No Acute Distress - Extremities Exam Additional comments: Lower Extremity Exam- VASC: DP and PT faintly palpable, CFT less than 3 seconds X 10, TG within normal limits NEURO: grossly intact DERM: Nails thickened, elongated, and dystrophic with the presence of subungual debris x10. xerosis noted to bilateral lower extremities, pre-ulcerative lesions noted to bilateral heels, no open wounds to the heels, no drainage, no malodor, no fluctuance, no erythema, no edema, no signs of infection; skin blisters noted to the 2nd and 3rd digits of the right foot with minimal erythema ORTHO: no pain upon palpation of the heels bilaterally - Neurological Exam Neurological Exam: Alert, Awake, Oriented x3 - Psychiatric Exam Psychiatric exam: Normal Affect, Normal Mood Assessment and Plan - Assessment and Plan (Free Text) Assessment: 77 y/o female with PMHx of HTN, hypothyroidism, tatum's palsy (Left-sided), arthritis and morbid obesity with onychomycosis and bilateral heel wounds Plan: Patient seen and evaluated alongside attending, Dr. Mckinney VSS Continue LacHydrin cream bilateral LE Ordered multipodus boot again - wear all times in bed Nails trimmed w/o incident Podiatry will sign off at this time, please reconsult if new issues arise <Adis Mckinney - Last Filed: 11/09/17 18:09> Objective - Vital Signs/Intake and Output Vital Signs (last 24 hours): Temp Pulse Resp BP Pulse Ox 98.5 F 90 18 115/60 96 11/09/17 13:58 11/09/17 17:12 11/09/17 13:58 11/09/17 17:12 11/09/17 13:58 Intake and Output: 11/09/17 11/09/17 06:59 18:59 Intake Total 900 860 Output Total 1425 1000 Balance -525 -140 - Medications Medications: Current Medications Aspirin (Ecotrin) 81 mg PO DAILY [facility] Last Admin: 11/09/17 09:29 Dose: 81 mg Atorvastatin Calcium (Lipitor) 10 mg PO HS [facility] Last Admin: 11/08/17 21:06 Dose: Not Given Enoxaparin Sodium (Lovenox) 60 mg SC DAILY [facility] PRN Reason: Protocol Last Admin: 11/09/17 09:28 Dose: 60 mg Furosemide (Lasix) 40 mg IVP BID [facility] Last Admin: 11/09/17 17:11 Dose: 40 mg Guaifenesin/Dextromethorphan (Robitussin Dm) 10 ml PO Q4H PRN PRN Reason: Cough Hydralazine HCl (Apresoline) 25 mg PO DAILY [facility] Last Admin: 11/09/17 09:29 Dose: 25 mg Ceftriaxone Sodium (Rocephin 1 Gram Ivpb) 1 gm in 100 mls @ 100 mls/hr IVPB DAILY [facility] PRN Reason: Protocol Stop: 11/11/17 10:59 Last Admin: 11/09/17 09:27 Dose: 100 mls/hr Lactic Acid (Lac-Hydrin 12% Cream (140 G)) 0 ea TOP DAILY [facility] Last Admin: 11/09/17 10:11 Dose: 1 appl Levothyroxine Sodium (Synthroid) 100 mcg PO DAILY [facility] Last Admin: 11/09/17 09:29 Dose: 100 mcg Metoprolol Tartrate (Lopressor) 50 mg PO BRKDIN [facility] Last Admin: 11/09/17 17:12 Dose: 50 mg Nystatin (Nystop Topical Powder) 0 gm TOP BID [facility] Last Admin: 11/09/17 17:14 Dose: 1 appl Potassium Chloride (K-Dur 20 Meq Er Tab) 20 meq PO DAILY [facility] Last Admin: 11/09/17 09:29 Dose: 20 meq - Labs Labs: 11/08/17 06:30 11/09/17 08:00 Attending/Attestation - Attestation I have personally seen and examined this patient.: Yes I have fully participated in the care of the patient.: Yes I have reviewed all pertinent clinical information, including history, physical exam and plan: Yes
--- NOTE | 2017-11-10 11:04 | CP.PCM.PN ---
<Marky Servin - Last Filed: 11/10/17 11:01> Subjective - Date & Time of Evaluation Date of Evaluation: 11/10/17 Time of Evaluation: 11:02 - Subjective Subjective: Patient seen and examined at bedside. Patient admits to occasional cough. No other complaints at this time. Denies chest pain, shortness of breath, nausea, vomiting, diarrhea, fever, chills. Objective - Vital Signs/Intake and Output Vital Signs (last 24 hours): Temp Pulse Resp BP Pulse Ox 98.3 F 98 H 18 115/60 94 L 11/10/17 06:00 11/10/17 08:23 11/10/17 06:00 11/10/17 08:23 11/10/17 06:00 Intake and Output: 11/10/17 11/10/17 06:59 18:59 Intake Total 780 Output Total 450 Balance 330 - Medications Medications: Current Medications Aspirin (Ecotrin) 81 mg PO DAILY [facility] Last Admin: 11/09/17 09:29 Dose: 81 mg Atorvastatin Calcium (Lipitor) 10 mg PO HS [facility] Last Admin: 11/09/17 21:14 Dose: 10 mg Enoxaparin Sodium (Lovenox) 60 mg SC DAILY [facility] PRN Reason: Protocol Last Admin: 11/09/17 09:28 Dose: 60 mg Furosemide (Lasix) 40 mg IVP BID [facility] Last Admin: 11/09/17 17:11 Dose: 40 mg Guaifenesin/Dextromethorphan (Robitussin Dm) 10 ml PO Q4H PRN PRN Reason: Cough Hydralazine HCl (Apresoline) 25 mg PO DAILY [facility] Last Admin: 11/09/17 09:29 Dose: 25 mg Ceftriaxone Sodium (Rocephin 1 Gram Ivpb) 1 gm in 100 mls @ 100 mls/hr IVPB DAILY [facility] PRN Reason: Protocol Stop: 11/11/17 10:59 Last Admin: 11/09/17 09:27 Dose: 100 mls/hr Lactic Acid (Lac-Hydrin 12% Cream (140 G)) 0 ea TOP DAILY [facility] Last Admin: 11/09/17 10:11 Dose: 1 appl Levothyroxine Sodium (Synthroid) 100 mcg PO DAILY [facility] Last Admin: 11/09/17 09:29 Dose: 100 mcg Metoprolol Tartrate (Lopressor) 50 mg PO BRKDIN [facility] Last Admin: 11/10/17 08:23 Dose: 50 mg Nystatin (Nystop Topical Powder) 0 gm TOP BID [facility] Last Admin: 11/09/17 17:14 Dose: 1 appl Potassium Chloride (K-Dur 20 Meq Er Tab) 20 meq PO DAILY [facility] Last Admin: 11/09/17 09:29 Dose: 20 meq - Labs Labs: 11/08/17 06:30 11/09/17 08:00 - Constitutional Appears: Non-toxic, No Acute Distress - Head Exam Head Exam: ATRAUMATIC, NORMAL INSPECTION, NORMOCEPHALIC - ENT Exam ENT Exam: Mucous Membranes Moist - Respiratory Exam Respiratory Exam: Decreased Breath Sounds, NORMAL BREATHING PATTERN. absent: Rhonchi, Wheezes - Cardiovascular Exam Cardiovascular Exam: RRR, +S1, +S2 - GI/Abdominal Exam GI & Abdominal Exam: Soft, Normal Bowel Sounds. absent: Tenderness - Extremities Exam Extremities Exam: Normal Inspection, Pedal Edema (Trace b/l). absent: Calf Tenderness - Back Exam Back Exam: rash noted - Neurological Exam Neurological Exam: Alert, Awake, Oriented x3 - Psychiatric Exam Psychiatric exam: Normal Affect, Normal Mood - Skin Skin Exam: Warm Additional comments: Lower extremities b/l in multipodus boots. Bandaged Assessment and Plan - Assessment and Plan (Free Text) Plan: 1. B/l heel ulcers 2. Sarcal wound 3. Morbid obesity 4. Deconditioning 5. Hypothyroidism Patient will continue on Rocephin at this time. Patient is being followed by podiatry who are treating the wounds on b/l heels. Patient advised to wear boots on both legs. Patient is encouraged to work with physical therapy. Patient will also be placed on DVT prophylaxis. Patient will need subacute rehab. Continue current medical regimen and will monitor closely. Gareth, PGY-3 <Ata Poe S - Last Filed: 11/11/17 20:59> Objective - Vital Signs/Intake and Output Vital Signs (last 24 hours): Temp Pulse Resp BP Pulse Ox 98.9 F 98 H 16 110/60 100 11/11/17 14:00 11/11/17 18:01 11/11/17 14:00 11/11/17 18:01 11/11/17 14:00 Intake and Output: 11/11/17 11/12/17 18:59 06:59 Output Total 700 Balance -700 - Medications Medications: Current Medications Aspirin (Ecotrin) 81 mg PO DAILY [facility] Last Admin: 11/11/17 11:15 Dose: 81 mg Atorvastatin Calcium (Lipitor) 10 mg PO HS [facility] Last Admin: 11/10/17 21:03 Dose: 10 mg Benzonatate (Tessalon Perles) 100 mg PO TID [facility] Last Admin: 11/11/17 18:00 Dose: 100 mg Enoxaparin Sodium (Lovenox) 60 mg SC DAILY [facility] PRN Reason: Protocol Last Admin: 11/11/17 11:14 Dose: 60 mg Furosemide (Lasix) 40 mg IVP BID [facility] Last Admin: 11/11/17 17:59 Dose: 40 mg Guaifenesin/Dextromethorphan (Robitussin Dm) 10 ml PO Q4H PRN PRN Reason: Cough Last Admin: 11/11/17 11:11 Dose: 10 ml Hydralazine HCl (Apresoline) 25 mg PO DAILY [facility] Last Admin: 11/11/17 11:15 Dose: 25 mg Lactic Acid (Lac-Hydrin 12% Cream (140 G)) 0 ea TOP DAILY [facility] Last Admin: 11/11/17 11:16 Dose: 1 appl Levothyroxine Sodium (Synthroid) 100 mcg PO DAILY [facility] Last Admin: 11/11/17 11:15 Dose: 100 mcg Metoprolol Tartrate (Lopressor) 50 mg PO BRKDIN [facility] Last Admin: 11/11/17 18:01 Dose: 50 mg Nystatin (Nystop Topical Powder) 0 gm TOP BID [facility] Last Admin: 11/11/17 18:01 Dose: 1 appl Oxycodone/Acetaminophen (Percocet 5/325 Mg Tab) 1 tab PO Q6H PRN PRN Reason: Pain, severe (8-10) Stop: 11/13/17 20:06 Last Admin: 11/11/17 16:46 Dose: 1 tab Potassium Chloride (K-Dur 20 Meq Er Tab) 20 meq PO DAILY [facility] Last Admin: 11/11/17 11:12 Dose: 20 meq - Labs Labs: 11/08/17 06:30 11/09/17 08:00 Assessment and Plan - Assessment and Plan (Free Text) Plan: Pt seen and examined. I have reviewed the note of the ophthalmic medical assistant and agree with it. I have discussed the assessment and plan with the resident. I have reviewed the patient's labs and medications. Pt was seen and examined yesterday and this is a late entry. Pt's wounds are being follwed. She is waiting to get to rehab. She is getting PT and needs help at home. Spoke to clinical social work therapist. Pt is on IV Abx.
[2017-11-10] MEDS: Potassium Chloride 20 mEq ER Tab PO SCH (11:14)
[2017-11-10] MEDS: Enoxaparin 60 mg Syringe SC SCH (11:14)
[2017-11-10] MEDS: cefTRIAXone 1 gm 1 GM/100 ML BAG IVPB SCH (11:14)
[2017-11-10] MEDS: Ammonium Lactate 12% Cream (140 g) TOP SCH (11:15)
[2017-11-10] MEDS: Nystatin 100,000 Units/gm Topical Pow(15 gm) TOP SCH ×2 (11:15→17:46)
[2017-11-10] MEDS: Levothyroxine 100 MCG TAB PO SCH (11:15)
[2017-11-10] MEDS: Oxycodone/Acetaminophen 5/325 mg Tab PO PRN (21:02)
[2017-11-11] MEDS: Oxycodone/Acetaminophen 5/325 mg Tab PO PRN ×2 (03:05→16:46)
--- NOTE | 2017-11-11 07:59 | CP.PCM.PN ---
<Marky Servin - Last Filed: 11/11/17 07:55> Subjective - Date & Time of Evaluation Date of Evaluation: 11/11/17 Time of Evaluation: 07:56 - Subjective Subjective: Patient seen and examined at bedside. Patient complains of worsening cough this morning. Denies chest pain, shortness of breath, nausea, vomiting, diarrhea, fever, chills. Objective - Vital Signs/Intake and Output Vital Signs (last 24 hours): Temp Pulse Resp BP Pulse Ox 99 F 103 H 18 109/71 96 11/10/17 22:48 11/10/17 22:48 11/10/17 22:48 11/10/17 22:48 11/10/17 22:48 Intake and Output: 11/11/17 11/11/17 06:59 18:59 Output Total 700 Balance -700 - Medications Medications: Current Medications Aspirin (Ecotrin) 81 mg PO DAILY [facility] Last Admin: 11/10/17 11:14 Dose: 81 mg Atorvastatin Calcium (Lipitor) 10 mg PO HS [facility] Last Admin: 11/10/17 21:03 Dose: 10 mg Enoxaparin Sodium (Lovenox) 60 mg SC DAILY [facility] PRN Reason: Protocol Last Admin: 11/10/17 11:14 Dose: 60 mg Furosemide (Lasix) 40 mg IVP BID [facility] Last Admin: 11/10/17 17:44 Dose: 40 mg Guaifenesin/Dextromethorphan (Robitussin Dm) 10 ml PO Q4H PRN PRN Reason: Cough Hydralazine HCl (Apresoline) 25 mg PO DAILY [facility] Last Admin: 11/10/17 11:20 Dose: 25 mg Ceftriaxone Sodium (Rocephin 1 Gram Ivpb) 1 gm in 100 mls @ 100 mls/hr IVPB DAILY [facility] PRN Reason: Protocol Stop: 11/11/17 10:59 Last Admin: 11/10/17 11:14 Dose: 100 mls/hr Lactic Acid (Lac-Hydrin 12% Cream (140 G)) 0 ea TOP DAILY [facility] Last Admin: 11/10/17 11:15 Dose: Not Given Levothyroxine Sodium (Synthroid) 100 mcg PO DAILY [facility] Last Admin: 11/10/17 11:15 Dose: 100 mcg Metoprolol Tartrate (Lopressor) 50 mg PO BRKDIN [facility] Last Admin: 11/10/17 17:45 Dose: 50 mg Nystatin (Nystop Topical Powder) 0 gm TOP BID [facility] Last Admin: 11/10/17 17:46 Dose: Not Given Oxycodone/Acetaminophen (Percocet 5/325 Mg Tab) 1 tab PO Q6H PRN PRN Reason: Pain, severe (8-10) Stop: 11/13/17 20:06 Last Admin: 11/11/17 03:05 Dose: 1 tab Potassium Chloride (K-Dur 20 Meq Er Tab) 20 meq PO DAILY [facility] Last Admin: 11/10/17 11:14 Dose: 20 meq - Labs Labs: 11/08/17 06:30 11/09/17 08:00 - Constitutional Appears: Non-toxic, No Acute Distress - Head Exam Head Exam: ATRAUMATIC, NORMAL INSPECTION, NORMOCEPHALIC - ENT Exam ENT Exam: Mucous Membranes Moist - Respiratory Exam Respiratory Exam: Clear to Ausculation Bilateral, NORMAL BREATHING PATTERN - Cardiovascular Exam Cardiovascular Exam: RRR, +S1, +S2 - GI/Abdominal Exam GI & Abdominal Exam: Soft, Normal Bowel Sounds. absent: Tenderness - Extremities Exam Additional comments: Multipodus boots on, bandaged - Neurological Exam Neurological Exam: Alert, Awake, CN II-XII Intact, Oriented x3 - Psychiatric Exam Psychiatric exam: Normal Affect, Normal Mood - Skin Skin Exam: Intact, Normal Color, Warm Assessment and Plan - Assessment and Plan (Free Text) Plan: 1. B/l heel ulcers 2. Sarcal wound 3. Morbid obesity 4. Deconditioning 5. Hypothyroidism Patient will continue on Rocephin at this time. Patient is being followed by podiatry who are treating the wounds on b/l heels. We will add Tessalon Pereles for cough. Patient is encouraged to work with physical therapy. Patient will continue on DVT prophylaxis. Patient will need subacute rehab with bariatric capabilities. Will follow up with social work for placement. Continue current medical regimen and will monitor closely. Gareth PGY-3 <Ata Poe S - Last Filed: 11/11/17 21:16> Objective - Vital Signs/Intake and Output Vital Signs (last 24 hours): Temp Pulse Resp BP Pulse Ox 98.9 F 98 H 16 110/60 100 11/11/17 14:00 11/11/17 18:01 09/06/18 14:00 11/11/17 18:01 11/11/17 14:00 Intake and Output: 11/11/17 11/12/17 18:59 06:59 Output Total 700 Balance -700 - Medications Medications: Current Medications Aspirin (Ecotrin) 81 mg PO DAILY [facility] Last Admin: 11/11/17 11:15 Dose: 81 mg Atorvastatin Calcium (Lipitor) 10 mg PO HS [facility] Last Admin: 11/10/17 21:03 Dose: 10 mg Benzonatate (Tessalon Perles) 100 mg PO TID [facility] Last Admin: 11/11/17 18:00 Dose: 100 mg Enoxaparin Sodium (Lovenox) 60 mg SC DAILY [facility] PRN Reason: Protocol Last Admin: 11/11/17 11:14 Dose: 60 mg Furosemide (Lasix) 40 mg IVP BID [facility] Last Admin: 11/11/17 17:59 Dose: 40 mg Guaifenesin/Dextromethorphan (Robitussin Dm) 10 ml PO Q4H PRN PRN Reason: Cough Last Admin: 11/11/17 11:11 Dose: 10 ml Hydralazine HCl (Apresoline) 25 mg PO DAILY [facility] Last Admin: 11/11/17 11:15 Dose: 25 mg Lactic Acid (Lac-Hydrin 12% Cream (140 G)) 0 ea TOP DAILY [facility] Last Admin: 11/11/17 11:16 Dose: 1 appl Levothyroxine Sodium (Synthroid) 100 mcg PO DAILY [facility] Last Admin: 11/11/17 11:15 Dose: 100 mcg Metoprolol Tartrate (Lopressor) 50 mg PO BRKDIN [facility] Last Admin: 11/11/17 18:01 Dose: 50 mg Nystatin (Nystop Topical Powder) 0 gm TOP BID [facility] Last Admin: 11/11/17 18:01 Dose: 1 appl Oxycodone/Acetaminophen (Percocet 5/325 Mg Tab) 1 tab PO Q6H PRN PRN Reason: Pain, severe (8-10) Stop: 11/13/17 20:06 Last Admin: 11/11/17 16:46 Dose: 1 tab Potassium Chloride (K-Dur 20 Meq Er Tab) 20 meq PO DAILY [facility] Last Admin: 11/11/17 11:12 Dose: 20 meq - Labs Labs: 11/08/17 06:30 09/04/18 08:00 Assessment and Plan - Assessment and Plan (Free Text) Plan: Pt seen and examined. I have reviewed the note of the medical management trainer and agree with it. I have discussed the assessment and plan with the resident. I have reviewed the patient's labs and medications. Pt waiting to go to [facility]. She has a cough and will be placed on Tessalon for the cough. Spoke to about [facility]. She is getting PT. Eating ok. No pain.
[2017-11-11] MEDS: Nystatin 100,000 Units/gm Topical Pow(15 gm) TOP SCH ×2 (10:01→18:01)
[2017-11-11] MEDS: cefTRIAXone 1 gm 1 GM/100 ML BAG IVPB SCH (11:10)
[2017-11-11] MEDS: Potassium Chloride 20 mEq ER Tab PO SCH (11:12)
[2017-11-11] MEDS: Enoxaparin 60 mg Syringe SC SCH (11:14)
[2017-11-11] MEDS: Levothyroxine 100 MCG TAB PO SCH (11:15)
[2017-11-11] MEDS: Ammonium Lactate 12% Cream (140 g) TOP SCH (11:16)
[2017-11-11 22:22] VITALS: BP 163/52; PULSE 67; RESP 18; TEMP 98.5; O2SAT 96
== END 2017-11-11 23:00 | DRG 593 ==
LOC: ED 12:06 → ERH 15:50 → 5RNO 17:16 → 5RSO 11-10 18:39
PROVIDERS: ADMIT Internal Medicine; ATTEND Internal Medicine Nephrology
DX: L97.121 Non-pressure chronic ulcer of left thigh limited to breakdown of skin (principal); Z68.43 Body mass index [BMI] 50.0-59.9, adult; L97.111 Non-pressure chronic ulcer of right thigh limited to breakdown of skin; E66.01 Morbid (severe) obesity due to excess calories; E03.9 Hypothyroidism, unspecified; E78.5 Hyperlipidemia, unspecified; E87.6 Hypokalemia; I10 Essential (primary) hypertension; I70.0 Atherosclerosis of aorta; L97.419 Non-pressure chronic ulcer of right heel and midfoot with unspecified severity; L97.429 Non-pressure chronic ulcer of left heel and midfoot with unspecified severity; M15.9 Polyosteoarthritis, unspecified; G51.0 Bell's palsy; R32 Unspecified urinary incontinence; S71.119A Laceration without foreign body, unspecified thigh, initial encounter; Z74.01 Bed confinement status; Z79.82 Long term (current) use of aspirin; Z79.890 Hormone replacement therapy; Z79.899 Other long term (current) drug therapy; Z90.49 Acquired absence of other specified parts of digestive tract

== ENCOUNTER 2017-12-29 17:52 | Observation (INO) | payer MEDICARE, MEDICAID ==
[2017-12-29 18:00] VITALS: BMI 34.3
--- NOTE | 2017-12-29 18:42 | ED PDOC ---
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 Patient states that she can hear the nurses tapping her, trying to wake her, however, she felt too weak to respond. As per patient and her daughter the patient was at a rehab facility after being admitted in September for leg swelling, she was then d/c home and could n ot perform ADL's, was brought back to this hospital and admitted for bed sores and now she has been at [facility] since due to inability to walk and deconditioning. Patient's daughter also adds that the patient has had decrease in appetite for "a while now." Otherwise the patient denies fever, chills, URI, headache, dizziness, nausea, vomiting, shortness of breath, chest pain, abdominal pain. PMD Condo Past Medical History - Infectious Disease Hx of Infectious Diseases: None - Cardiac Hx Hypertension: Yes - Pulmonary Hx Respiratory Disorders: No - Neurological Other/Comment: bells palsey- right facial droop - HEENT Hx HEENT Disorder: No - Renal Hx Renal Disorder: No - Endocrine/Metabolic Hx Hypothyroidism: Yes - Hematological/Oncological Hx Blood Disorders: No - Integumentary Hx Dermatological Disorder: Yes (BILATERAL GLUTEAL FOLD WITH SKIN EXCORIATION. IASD) - Musculoskeletal/Rheumatological Hx Arthritis: Yes - Gastrointestinal Hx Gastrointestinal Disorders: Yes Other/Comment: morbid obesity - Genitourinary/Gynecological Hx Genitourinary Disorders: Yes Hx Incontinence: Yes - Psychiatric Hx Psychophysiologic Disorder: No Hx Substance Use: No - Surgical History Hx Cholecystectomy: Yes Other/Comment: ganglion cyst left hand - Anesthesia Hx Anesthesia: Yes Hx Anesthesia Reactions: No Hx Malignant Hyperthermia: No - Suicidal Assessment Feels Threatened In Home Enviroment: No Family/Social History Family/Social History: Unknown Family HX Smoking Status: Never Smoked Hx Alcohol Use: No Hx Substance Use: No Allergies/Home Meds Allergies/Adverse Reactions: Allergies No Known Allergies Allergy (Verified 12/29/17 18:10) Home Medications: Home Meds Medication Instructions Recorded Confirmed Levothyroxine Sodium 100 mcg PO DAILY 10/15/14 12/29/17 Metoprolol Tartrate 25 mg PO BID 07/08/15 12/29/17 Atorvastatin [Lipitor] 10 mg PO HS 09/30/15 12/29/17 Aspirin [Ecotrin] 81 mg PO DAILY 09/16/17 12/29/17 hydrALAZINE [Apresoline] 25 mg PO DAILY 11/07/17 12/29/17 ALPRAZolam [Xanax] 1 tab PO Q8H 12/29/17 12/29/17 Famotidine [Pepcid] 1 tab PO BID 12/29/17 12/29/17 Furosemide [Lasix] 1 tab PO BID 12/29/17 12/29/17 Mirtazapine [Remeron] 1 tab PO HS 12/29/17 12/29/17 Multivitamin [Multivitamins] 1 tab PO DAILY 12/29/17 12/29/17 Ondansetron ODT [Zofran ODT] 1 tab PO Q6H PRN 12/29/17 12/29/17 Potassium Chloride [K-Dur 20 mEq 1 tab PO DAILY 12/29/17 12/29/17 ER Tab] Zinc [Zinc Sulfate 220 mg Cap] 1 tab PO DAILY 12/29/17 12/29/17 traMADol [Ultram] 1 tab PO Q8H PRN 12/29/17 12/29/17 Review of Systems - Review of Systems Constitutional: Fatigue. absent: Fevers Respiratory: absent: SOB, Cough Cardiovascular: absent: Chest Pain, Palpitations, Edema Gastrointestinal: absent: Abdominal Pain, Diarrhea, Vomiting Genitourinary Female: absent: Dysuria, Frequency Musculoskeletal: absent: Arthralgias, Back Pain Skin: Other (h/o bed sores). absent: Rash, Pruritis Neurological: absent: Headache, Dizziness Physical Exam Vital Signs Temp Pulse Resp BP Pulse Ox 12/29/17 18:15 97.9 F 83 18 132/58 L 96 Temperature: Afebrile Blood Pressure: Normal Pulse: Regular Respiratory Rate: Normal Appearance: Positive for: Well-Appearing, Non-Toxic, Comfortable Pain Distress: None Mental Status: Positive for: Alert and Oriented X 3 Finger Stick Blood Glucose: 99 - Systems Exam Head: Present: Atraumatic, Normocephalic Pupils: Present: PERRL Extroacular Muscles: Present: EOMI Conjunctiva: Present: Normal Mouth: Present: Dry Neck: Present: Normal Range of Motion. No: Meningeal Signs, MIDLINE TENDERNESS, Lymphadenopathy Respiratory/Chest: Present: Clear to Auscultation, Good Air Exchange. No: Respiratory Distress, Accessory Muscle Use Cardiovascular: Present: Regular Rate and Rhythm, Normal S1, S2. No: Murmurs Abdomen: No: Tenderness, Distention, Peritoneal Signs Back: Present: Normal Inspection Upper Extremity: Present: Normal Inspection. No: Cyanosis, Edema Lower Extremity: Present: Normal Inspection. No: Edema Neurological: Present: GCS=15, CN II-XII Intact, Speech Normal, Motor Func Grossly Intact, Normal Sensory Function, Memory Normal, Other (+droop to the lower side of the L face) Skin: Present: Warm, Dry, Normal Color. No: Rashes Psychiatric: Present: Alert, Oriented x 3, Normal Insight, Normal Concentration Medical Decision Making ED Course and Treatment: 12/29/17 18:44 Plan : Plan : - IV - Labs - UA - EKG - CXR - classroom monitor - CT head EKG : SR with PACs at 90 bpm, prolonged QT, no acute ST changes. CXR : NAD. CT HEAD : No acute intracranial abnormality. Stone Cash MD 12/29/171921. Labs reviewed : wbc 6.2, hgb 13, K 3.5, lactate 2.5, trop (-), bnp (-), UA:+large leuks/moderate blood/wbcs 25-30 On re-evaluation, patient laying in bed comfortably. Patient remains AAOx3, without any new neurologic deficits. Diagnostic results d/w the patient and her daughter in great detail. Patient notified of UTI. Rocephin 1 g IV ordered. Based on history, exam and diagnostic results, plan will be for inpatient admission. Case d/w Dr. Poe, who agrees with plan to admit the patient for AMS, UTI and sepsis, requests consult with Dr. Gayle. Patient and her daughter agree with current plan for and disposition. I have given the patient and her daughter the opportunity to ask any additional questions. - Lab Interpretations Lab Results: Lab Results 12/29/17 18:18: POC Glucose (mg/dL) 99 - RAD Interpretation Radiology Orders: 12/29/17 18:27 CHEST PORTABLE [RAD] Stat 12/29/17 18:28 HEAD W/O CONTRAST [CT] Stat - PA / MULTIMEDIA COORDINATOR / Resident Statement / has reviewed & agrees with the documentation as recorded. Disposition/Present on Arrival - Present on Arrival Any Indicators Present on Arrival: No History of DVT/PE: No History of Uncontrolled Diabetes: No Urinary Catheter: No History of Decub. Ulcer: No History Surgical Site Infection Following: None - Disposition Have Diagnosis and Disposition been Completed?: Yes Diagnosis: Altered mental status, UTI (urinary tract infection), Sepsis Disposition: HOSPITALIZED Disposition Time: 23:30 Patient Plan: Admission Patient Problems: Current Active Problems Problem Status Onset Altered mental status Acute Sepsis Acute UTI (urinary tract infection) Acute Condition: STABLE Discharge Instructions (ExitCare): Sepsis (ED) Referrals: Robin Harris DO [Primary Care Provider] - Follow up with primary Forms: [employer] ([place])
[2017-12-29] MEDS ORDERED: Sodium Chloride 0.9% 500 ML IV STA (18:46)
[2017-12-29 20:28] LABS: VENOUS BLOOD GAS BASE EXCESS 7.3 mmol/L (0.0-2.0); VENOUS BLOOD GAS PO2 102 mm/Hg (30-55); VENOUS BLOOD PH 7.38 (7.32-7.43)
[2017-12-29 20:34] LABS: BASO # 0.02 K/mm3 (0.0-2.0); BASO % 0.3 % (0.0-3.0); EOS # 0.1 (0.0-0.7); EOS % 1.3 % (1.5-5.0); GRAN # 2.98 (1.4-6.5); GRAN % 48.3 % (50.0-68.0); LYMPH # 2.6 (1.2-3.4); LYMPH % 41.8 % (22.0-35.0); MEAN CELL VOLUME 79.9 fl (80.0-105.0); MEAN CORPUSCULAR HEMOGLOBIN 25.6 pg (25.0-35.0); MEAN CORPUSCULAR HGB CONC 32.1 g/dl (31.0-37.0); MEAN PLATELET VOLUME 9.6 fl (7.0-11.0); MONO # 0.5 (0.1-0.6); MONO % 8.3 % (1.0-6.0); RBC 5.07 10^6/uL (3.5-6.1); RED CELL DISTRIBUTION WIDTH 16.2 % (11.5-14.5); WHITE BLOOD COUNT 6.2 10^3/ul (4.5-11.0)
[2017-12-29 20:39] LABS: INR 1.03; PARTIAL THROMBOPLASTIN TIME 24.8 Seconds (25.1-36.5); PROTHROMBIN TIME 11.8 SECONDS (9.4-12.5)
[2017-12-29 20:42] LABS: ALBUMIN 4.3 g/dL (3.0-4.8); ALT/SGPT 40 U/L (7-56); AST/SGOT 48 U/L (14-36); BLOOD UREA NITROGEN 10 mg/dL (7-21); CALCIUM 9.7 mg/dL (8.4-10.5); GFR NON-AFRICAN AMERICAN > 60
[2017-12-29 20:52] LABS: B-TYPE NATRIURETIC PEPTIDE 52.8 pg/mL (0-450); TROPONIN I < 0.01 ng/mL
[2017-12-29] MEDS ORDERED: Potassium Chloride 20 mEq/15 ml LIQ UD PO STA (22:32)
[2017-12-29 23:01] LABS: PH,URINE 7.5 (4.7-8.0); URINE BILIRUBIN NEGATIVE (NEGATIVE); URINE BLOOD MODERATE (NEGATIVE); URINE GLUCOSE (UA) NEGATIVE (NEGATIVE); URINE LEUKOCYTE ESTERASE LARGE Leu/uL (NEGATIVE); URINE PROTEIN 100 mg/dL (<30 mg/dL)
[2017-12-29 23:05] LABS: URINE APPEARANCE CLOUDY (CLEAR); URINE COLOR YELLOW (YELLOW)
[2017-12-29] MEDS ORDERED: cefTRIAXone 1 gm 1 GM/100 ML BAG IVPB STA (23:18)
[2017-12-29 23:22] LABS: URINE BACTERIA MANY (NEG); URINE RBC 20 - 25 /hpf (0-2); URINE WBC 25 - 30 /hpf (0-6)
[2017-12-30 01:41] LABS: VENOUS BLOOD GAS BASE EXCESS 3.9 mmol/L (0.0-2.0); VENOUS BLOOD GAS PO2 29 mm/Hg (30-55); VENOUS BLOOD PH 7.34 (7.32-7.43)
[2017-12-30 02:08] VITALS: RESP 20
[2017-12-30] MEDS ORDERED: Sodium Chloride 0.9% 1,000 ML IV SCH (02:15)
[2017-12-30 04:20] LABS: VENOUS BLOOD GAS BASE EXCESS 10.5 mmol/L (0.0-2.0); VENOUS BLOOD GAS PO2 22 mm/Hg (30-55); VENOUS BLOOD PH 7.39 (7.32-7.43)
--- NOTE | 2017-12-30 05:12 | PCM.SEPTIC ---
Sepsis Progress Note - Reassessment Type Date of Evaluation: 12/30/17 Time of Evaluation: 05:10 Reassessment Type: Non-invasive reassessment - Non Invasive Reassessment Were the most recent vital sign reviewed: Yes Vital Sign (Latest): Temp Pulse Resp BP Pulse Ox 97.5 F L 95 H 20 144/74 97 12/30/17 01:30 12/30/17 01:30 12/30/17 01:47 12/30/17 01:30 12/30/17 01:30 Cardiovascular: Yes: Regular Rate, Rhythm Respiratory: Yes: Normal Breath Sounds Capillary Refill: Delayed Pulses: Normal Radial, Decreased Dorsalis Pedis, Decreased Posterior Tibialis Skin: Warm, Dry
[2017-12-30 07:46] LABS: VENOUS BLOOD GAS BASE EXCESS 11.1 mmol/L (0.0-2.0); VENOUS BLOOD GAS PO2 40 mm/Hg (30-55); VENOUS BLOOD PH 7.38 (7.32-7.43)
[2017-12-30] MEDS ORDERED: Levothyroxine 100 MCG TAB PO SCH (08:15)
--- NOTE | 2017-12-30 08:22 | CT ---
Date of service: 12/29/2017 PROCEDURE: CT HEAD WITHOUT CONTRAST. HISTORY: AMS COMPARISON: None available. TECHNIQUE: Axial computed tomography images were obtained through the head/brain without intravenous contrast. Radiation dose: Total exam DLP = 1220.1 mGy-cm. This CT exam was performed using one or more of the following dose reduction techniques: Automated exposure control, adjustment of the mA and/or kV according to patient size, and/or use of iterative reconstruction technique. FINDINGS: HEMORRHAGE: No intracranial hemorrhage. BRAIN: No mass effect or edema. No atrophy or chronic microvascular ischemic changes. VENTRICLES: Unremarkable. No hydrocephalus. CALVARIUM: Unremarkable. PARANASAL SINUSES: Unremarkable as visualized. No significant inflammatory changes. MASTOID AIR CELLS: Unremarkable as visualized. No inflammatory changes. OTHER FINDINGS: None. IMPRESSION: Normal CT of the Head.
[2017-12-30] MEDS: Enoxaparin 40 mg Syringe SC SCH ×2 (09:17→09:34)
--- NOTE | 2017-12-30 09:17 | RAD ---
Date of service: 12/29/2017 HISTORY: AMS COMPARISON: 11/07/2017. FINDINGS: LUNGS: The lungs are well inflated and clear. PLEURA: No pleural effusions or pneumothorax. CARDIOVASCULAR: There is mild cardiomegaly. Atherosclerotic aortic arch calcifications are present. OSSEOUS STRUCTURES: Within normal limits for the patient's age. VISUALIZED UPPER ABDOMEN: Normal. OTHER FINDINGS: None. IMPRESSION: No active pulmonary disease.
[2017-12-30 09:29] VITALS: BP 118/78
[2017-12-30 09:41] VITALS: PULSE 90; TEMP 98.4; O2SAT 96
[2017-12-30] MEDS ORDERED: Ammonium Lactate 12% Cream (140 g) TOP SCH (10:00)
[2017-12-30] MEDS ORDERED: Nystatin 100,000 Units/gm Topical Pow(15 gm) TOP SCH (10:00)
[2017-12-30] MEDS ORDERED: cefTRIAXone 1 gm 1 GM/100 ML BAG IVPB SCH (10:00)
[2017-12-30] MEDS ORDERED: Levothyroxine 50 MCG TAB PO SCH (10:00)
--- NOTE | 2017-12-30 10:45 | CARD ---
APPROVED REPORT Date of service: 12/29/2017 EKG Measurement Heart [id number] <Conclusion> Sinus rhythm with premature atrial complexes with aberrant conduction Nonspecific T wave abnormality Prolonged QT PRWP No change
--- NOTE | 2017-12-30 12:27 | CP.PCM.DIS ---
<Tifafnie Chou - Last Filed: 12/30/17 16:56> Provider - Provider Date of Admission: 12/29/17 23:29 Attending physician: Ata Poe MD Primary care physician: Robin Harris DO Time Spent in preparation of Discharge (in minutes): 35 Hospital Course - Lab Results Lab Results: Most Recent Lab Values WBC 6.2 10^3/ul (4.5-11.0) 12/29/17 20:00 RBC 5.07 10^6/uL (3.5-6.1) 12/29/17 20:00 Hgb 13.0 g/dL (12.0-16.0) 12/29/17 20:00 Hct 40.5 % (36.0-48.0) 12/29/17 20:00 MCV 79.9 fl (80.0-105.0) L 12/29/17 20:00 MCH 25.6 pg (25.0-35.0) 12/29/17 20:00 MCHC 32.1 g/dl (31.0-37.0) 12/29/17 20:00 RDW 16.2 % (11.5-14.5) H 12/29/17 20:00 Plt Count 246 10^3/uL (120.0-450.0) 12/29/17 20:00 MPV 9.6 fl (7.0-11.0) 12/29/17 20:00 Gran % 48.3 % (50.0-68.0) L 12/29/17 20:00 Lymph % (Auto) 41.8 % (22.0-35.0) H 12/29/17 20:00 [place] % (Auto) 8.3 % (1.0-6.0) H 12/29/17 20:00 Eos % (Auto) 1.3 % (1.5-5.0) L 12/29/17 20:00 Baso % (Auto) 0.3 % (0.0-3.0) 12/29/17 20:00 Gran # 2.98 (1.4-6.5) 12/29/17 20:00 Lymph # (Auto) 2.6 (1.2-3.4) 12/29/17 20:00 Fisher # (Auto) 0.5 (0.1-0.6) 12/29/17 20:00 Eos # (Auto) 0.1 (0.0-0.7) 12/29/17 20:00 Baso # (Auto) 0.02 K/mm3 (0.0-2.0) 12/29/17 20:00 PT 11.8 SECONDS (9.4-12.5) 12/29/17 20:00 INR 1.03 12/29/17 20:00 APTT 24.8 Seconds (25.1-36.5) L 12/29/17 20:00 pO2 40 mm/Hg (30-55) 12/30/17 07:25 VBG pH 7.38 (7.32-7.43) 12/30/17 07:25 VBG pCO2 66.0 (40-60) H* 12/30/17 07:25 VBG HCO3 39.0 mmol/l (21-28) H 12/30/17 07:25 VBG Total CO2 41.0 mmol.L (22-28) H 12/30/17 07:25 VBG O2 Sat (Calc) 71.8 % (40-65) H 12/30/17 07:25 VBG Base Excess 11.1 mmol/L (0.0-2.0) H 12/30/17 07:25 VBG Potassium 4.3 mmol/L (3.6-5.2) 12/30/17 07:25 Sodium 143.0 mmol/L (132-148) 12/30/17 07:25 Chloride 103.0 mmol/L (98-107) 12/30/17 07:25 Glucose 107 mg/dl (65-105) H 12/30/17 07:25 Lactate 2.1 mmol/L (0.7-2.1) 12/30/17 07:25 FiO2 21.0 % 12/30/17 07:25 Sodium 141 mmol/L (132-148) 12/29/17 20:00 Potassium 3.5 mmol/L (3.6-5.0) L 12/29/17 20:00 Chloride 98 mmol/L (98-107) 12/29/17 20:00 Carbon Dioxide 32 mmol/L (21-33) 12/29/17 20:00 Anion Gap 14 (10-20) 12/29/17 20:00 BUN 10 mg/dL (7-21) 12/29/17 20:00 Creatinine 0.6 mg/dl (0.7-1.2) L 12/29/17 20:00 Est GFR ( Amer) > 60 12/29/17 20:00 Est GFR (Non-Af Amer) > 60 12/29/17 20:00 POC Glucose (mg/dL) 99 mg/dL (65-110) 12/29/17 18:18 Random Glucose 116 mg/dL (70-110) H 12/29/17 20:00 Calcium 9.7 mg/dL (8.4-10.5) 12/29/17 20:00 Magnesium 2.0 mg/dL (1.7-2.2) 12/29/17 20:00 Total Bilirubin 0.5 mg/dL (0.2-1.3) 12/29/17 20:00 AST 48 U/L (14-36) H D 12/29/17 20:00 ALT 40 U/L (7-56) 12/29/17 20:00 Alkaline Phosphatase 99 U/L (38-126) 12/29/17 20:00 Lactate Dehydrogenase 612 U/L (333-699) 12/29/17 20:00 Total Creatine Kinase 79 U/L (35-230) 12/29/17 20:00 Troponin I < 0.01 ng/mL 12/29/17 20:00 NT-Pro-B Natriuret Pep 52.8 pg/mL (0-450) 12/29/17 20:00 Total Protein 8.6 g/dL (5.8-8.3) H 12/29/17 20:00 Albumin 4.3 g/dL (3.0-4.8) 12/29/17 20:00 Globulin 4.2 gm/dL 12/29/17 20:00 Albumin/Globulin Ratio 1.0 (1.1-1.8) L 12/29/17 20:00 Venous Blood Potassium 4.3 mmol/L (3.6-5.2) 12/30/17 07:25 Urine Color Yellow (YELLOW) 12/29/17 22:55 Urine Appearance Cloudy (CLEAR) 12/29/17 22:55 Urine pH 7.5 (4.7-8.0) 12/29/17 22:55 Ur Specific [place] 1.020 (1.005-1.035) 12/29/17 22:55 Urine Protein 100 mg/dL (<30 mg/dL) H 12/29/17 22:55 Urine Glucose (UA) Negative mg/dL (NEGATIVE) 12/29/17 22:55 Urine Ketones Trace mg/dL (NEGATIVE) H 12/29/17 22:55 Urine Blood Moderate (NEGATIVE) H 12/29/17 22:55 Urine Nitrate Negative (NEGATIVE) 12/29/17 22:55 Urine Bilirubin Negative (NEGATIVE) 12/29/17 22:55 Urine Urobilinogen 1.0 E.U./dL (<1 E.U./dL) H 12/29/17 22:55 Ur Leukocyte Esterase Large [place]/uL (NEGATIVE) H 12/29/17 22:55 Urine RBC 20 - 25 /hpf (0-2) 12/29/17 22:55 Urine WBC 25 - 30 /hpf (0-6) 12/29/17 22:55 Ur Epithelial Cells 6 - 8 /hpf (0-5) 12/29/17 22:55 Urine Bacteria Many (NEG) 12/29/17 22:55 Urine Other Mucus 12/29/17 22:55 - Hospital Course Hospital Course: Tiffanie Chou DO, PGY-2 77 year old female with past medical history of hypertension, CHF, hypothyroidism, 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 Patient states that she can hear the nurses tapping her, trying to wake her, however, she felt too weak too respond. Labs and imaging showed UTI with elevated lactic acid. In the morning patient was neurologically stable and had no fever, chills, and was discharged with PO Bactrim for her UTI. Urine was obtained for culture. She was discharged with the below written instructions and recommendations. - Date & Time of H&P Date of H&P: 12/30/17 Time of H&P: 16:59 Discharge Exam - Head Exam Head Exam: ATRAUMATIC, NORMOCEPHALIC - Eye Exam Eye Exam: EOMI, Normal appearance - ENT Exam ENT Exam: Mucous Membranes Moist - Neck Exam Neck exam: Normal Inspection - Respiratory Exam Respiratory Exam: Clear to PA & Lateral, NORMAL BREATHING PATTERN. absent: Accessory Muscle Use - Cardiovascular Exam Cardiovascular Exam: RRR, +S1, +S2 - Extremities Exam Extremities exam: normal inspection - Back Exam Back exam: absent: CVA tenderness (L), CVA tenderness (R) - Neurological Exam Neurological exam: Alert, CN II-XII Intact, Oriented x3 - Psychiatric Exam Psychiatric exam: Normal Affect, Normal Mood - Skin Skin Exam: Dry, Intact, Normal Color, Warm Discharge Plan - Discharge Medications Prescriptions: Sulfamethoxazole/Trimethoprim [Bactrim DS 800 mg-160 mg] 1 tab PO Q12H #10 tab - Follow Up Plan Condition: STABLE Disposition: HOME/ ROUTINE Instructions: Urinary Tract Infection, Adult (DC) Additional Instructions: 1) You are to continue taking all of your medications as previously prescribed at your longterm residence, [facility], unless otherwise contraindicated. 2) You are to take your newly prescribed antibiotic, as directed. Referrals: Robin Harris DO [Primary Care Provider] - <Ata Poe - Last Filed: 12/30/17 18:57> Provider - Provider Date of Admission: 12/29/17 23:29 Attending physician: Ata Poe MD Primary care physician: Robin Harris DO Hospital Course - Lab Results Lab Results: Most Recent Lab Values WBC 6.2 10^3/ul (4.5-11.0) 12/29/17 20:00 RBC 5.07 10^6/uL (3.5-6.1) 12/29/17 20:00 Hgb 13.0 g/dL (12.0-16.0) 12/29/17 20:00 Hct 40.5 % (36.0-48.0) 12/29/17 20:00 MCV 79.9 fl (80.0-105.0) L 12/29/17 20:00 MCH 25.6 pg (25.0-35.0) 12/29/17 20:00 MCHC 32.1 g/dl (31.0-37.0) 12/29/17 20:00 RDW 16.2 % (11.5-14.5) H 12/29/17 20:00 Plt Count 246 10^3/uL (120.0-450.0) 12/29/17 20:00 MPV 9.6 fl (7.0-11.0) 12/29/17 20:00 Gran % 48.3 % (50.0-68.0) L 12/29/17 20:00 Lymph % (Auto) 41.8 % (22.0-35.0) H 12/29/17 20:00 Fisher % (Auto) 8.3 % (1.0-6.0) H 12/29/17 20:00 Eos % (Auto) 1.3 % (1.5-5.0) L 12/29/17 20:00 Baso % (Auto) 0.3 % (0.0-3.0) 12/29/17 20:00 Gran # 2.98 (1.4-6.5) 12/29/17 20:00 Lymph # (Auto) 2.6 (1.2-3.4) 12/29/17 20:00 Fisher # (Auto) 0.5 (0.1-0.6) 12/29/17 20:00 Eos # (Auto) 0.1 (0.0-0.7) 12/29/17 20:00 Baso # (Auto) 0.02 K/mm3 (0.0-2.0) 12/29/17 20:00 PT 11.8 SECONDS (9.4-12.5) 12/29/17 20:00 INR 1.03 12/29/17 20:00 APTT 24.8 Seconds (25.1-36.5) L 12/29/17 20:00 pO2 40 mm/Hg (30-55) 12/30/17 07:25 VBG pH 7.38 (7.32-7.43) 12/30/17 07:25 VBG pCO2 66.0 (40-60) H* 12/30/17 07:25 VBG HCO3 39.0 mmol/l (21-28) H 12/30/17 07:25 VBG Total CO2 41.0 mmol.L (22-28) H 12/30/17 07:25 VBG O2 Sat (Calc) 71.8 % (40-65) H 12/30/17 07:25 VBG Base Excess 11.1 mmol/L (0.0-2.0) H 12/30/17 07:25 VBG Potassium 4.3 mmol/L (3.6-5.2) 12/30/17 07:25 Sodium 143.0 mmol/L (132-148) 12/30/17 07:25 Chloride 103.0 mmol/L (98-107) 12/30/17 07:25 Glucose 107 mg/dl (65-105) H 12/30/17 07:25 Lactate 2.1 mmol/L (0.7-2.1) 12/30/17 07: FiO2 21.0 % 12/30/17 07:25 Sodium 141 mmol/L (132-148) 12/29/17 20:00 Potassium 3.5 mmol/L (3.6-5.0) L 12/29/17 20:00 Chloride 98 mmol/L (98-107) 12/29/17 20:00 Carbon Dioxide 32 mmol/L (21-33) 12/29/17 20:00 Anion Gap 14 (10-20) 12/29/17 20:00 BUN 10 mg/dL (7-21) 12/29/17 20:00 Creatinine 0.6 mg/dl (0.7-1.2) L 12/29/17 20:00 Est GFR ( Amer) > 60 12/29/17 20:00 Est GFR (Non-Af Amer) > 60 12/29/17 20:00 POC Glucose (mg/dL) 99 mg/dL (65-110) 12/29/17 18:18 Random Glucose 116 mg/dL (70-110) H 12/29/17 20:00 Calcium 9.7 mg/dL (8.4-10.5) 12/29/17 20:00 Magnesium 2.0 mg/dL (1.7-2.2) 12/29/17 20:00 Total Bilirubin 0.5 mg/dL (0.2-1.3) 12/29/17 20:00 AST 48 U/L (14-36) H D 12/29/17 20:00 ALT 40 U/L (7-56) 12/29/17 20:00 Alkaline Phosphatase 99 U/L (38-126) 12/29/17 20:00 Lactate Dehydrogenase 612 U/L (333-699) 12/29/17 20:00 Total Creatine Kinase 79 U/L (35-230) 12/29/17 20:00 Troponin I < 0.01 ng/mL 12/29/17 20:00 NT-Pro-B Natriuret Pep 52.8 pg/mL (0-450) 12/29/17 20:00 Total Protein 8.6 g/dL (5.8-8.3) H 12/29/17 20:00 Albumin 4.3 g/dL (3.0-4.8) 12/29/17 20:00 Globulin 4.2 gm/dL 12/29/17 20:00 Albumin/Globulin Ratio 1.0 (1.1-1.8) L 12/29/17 20:00 Venous Blood Potassium 4.3 mmol/L (3.6-5.2) 12/30/17 07:25 Urine Color Yellow (YELLOW) 12/29/17 22:55 Urine Appearance Cloudy (CLEAR) 12/29/17 22:55 Urine pH 7.5 (4.7-8.0) 12/29/17 22:55 Ur Specific [place] 1.020 (1.005-1.035) 12/29/17 22:55 Urine Protein 100 mg/dL (<30 mg/dL) H 12/29/17 22:55 Urine Glucose (UA) Negative mg/dL (NEGATIVE) 12/29/17 22:55 Urine Ketones Trace mg/dL (NEGATIVE) H 12/29/17 22:55 Urine Blood Moderate (NEGATIVE) H 12/29/17 22:55 Urine Nitrate Negative (NEGATIVE) 12/29/17 22:55 Urine Bilirubin Negative (NEGATIVE) 12/29/17 22:55 Urine Urobilinogen 1.0 E.U./dL (<1 E.U./dL) H 12/29/17 22:55 Ur Leukocyte Esterase Large Isauro/uL (NEGATIVE) H 12/29/17 22:55 Urine RBC 20 - 25 /hpf (0-2) 12/29/17 22:55 Urine WBC 25 - 30 /hpf (0-6) 12/29/17 22:55 Ur Epithelial Cells 6 - 8 /hpf (0-5) 12/29/17 22:55 Urine Bacteria Many (NEG) 12/29/17 22:55 Urine Other Mucus 12/29/17 22:55 - Hospital Course Hospital Course: Pt seen and examined. I have reviewed the note of the medical diagnostic radiographer and agree with it. I have discussed the assessment and plan with the resident. I have reviewed the patient's labs and medications. Pt with UTI and will be placed on PO Abx and discharged. Pt with HTN that is controlled. She has hx of Ryan's Palsy. Pt has OA that is controlled and pain is controlled. She will be discharged. CHF chronic with diastolic dysfunction. No issues.
--- NOTE | 2017-12-30 12:27 | CP.PCM.HP ---
<Tiffanie Chou - Last Filed: 12/30/17 16:29> History of Present Illness - History of Present Illness History of Present Illness: Tiffanie Chou DO, PGY-2: HPI for Dr. 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 Patient states that she can hear the nurses tapping her, trying to wake her, however, she felt too weak too respond. Labs and imaging showed UTI with elevated lactic acid. In the morning patient was neurologically stable and had no fever, chills, and was discharged with PO Bactrim for her UTI. Urine culture was obtained. Present on Admission - Present on Admission Any Indicators Present on Admission: No Review of Systems - Review of Systems All systems: reviewed and no additional remarkable complaints except (as per HPI) Past Patient History - Infectious Disease Hx of Infectious Diseases: None - Past Social History Smoking Status: Unknown If Ever Smoked - CARDIAC Hx Hypercholesterolemia: Yes Hx Hypertension: Yes - PULMONARY Hx Respiratory Disorders: No - NEUROLOGICAL Other/Comment: [place]- right facial droop - HEENT Hx HEENT Problems: No - RENAL Hx Chronic Kidney Disease: No - ENDOCRINE/METABOLIC Hx Hypothyroidism: Yes - HEMATOLOGICAL/ONCOLOGICAL Hx Blood Disorders: No - INTEGUMENTARY Hx Dermatological Problems: Yes (sacral area has old scar from prev pressure ulcer) - MUSCULOSKELETAL/RHEUMATOLOGICAL Hx Arthritis: Yes Hx Falls: No - GASTROINTESTINAL Hx Gastrointestinal Disorders: Yes Other/Comment: morbid obesity - GENITOURINARY/GYNECOLOGICAL Hx Incontinence: Yes - PSYCHIATRIC Hx Psychophysiologic Disorder: No - SURGICAL HISTORY Hx Cholecystectomy: Yes Other/Comment: ganglion cyst left hand - ANESTHESIA Hx Anesthesia: Yes Hx Anesthesia Reactions: No Hx Malignant Hyperthermia: No Meds Home Medications: Home Medication List Medication Instructions Recorded Confirmed Type Sulfamethoxazole/Trimethoprim 1 tab PO Q12H #10 tab 12/30/17 Rx [Bactrim DS 800 mg-160 mg] Allergies/Adverse Reactions: Allergies Allergy/AdvReac Type Severity Reaction Status Date / Time No Known Allergies Allergy Verified 12/29/17 18:10 Physical Exam - Constitutional Appears: Well, Non-toxic - Head Exam Head Exam: ATRAUMATIC, NORMOCEPHALIC - Eye Exam Eye Exam: EOMI, Normal appearance - ENT Exam ENT Exam: Mucous Membranes Moist - Neck Exam Neck exam: Positive for: Normal Inspection - Respiratory Exam Respiratory Exam: Clear to Auscultation Bilateral, NORMAL BREATHING PATTERN - Cardiovascular Exam Cardiovascular Exam: RRR, +S1, +S2 - GI/Abdominal Exam GI & Abdominal Exam: Normal Bowel Sounds, Soft - Extremities Exam Extremities exam: Positive for: normal inspection. Negative for: calf tenderness - Neurological Exam Neurological exam: Alert, CN II-XII Intact, Oriented x3 - Psychiatric Exam Psychiatric exam: Normal Affect, Normal Mood - Skin Skin Exam: Dry, Normal Color, Warm Results - Vital Signs Recent Vital Signs: Last Vital Signs Temp 98.4 F 12/30/17 06:00 Pulse 90 12/30/17 06:00 Resp 20 12/30/17 06:00 BP 118/78 12/30/17 09:16 Pulse Ox 96 12/30/17 06:00 - Labs Result Diagrams: 12/29/17 20:00 12/29/17 20:00 Labs: Laboratory Results - last 24 hr 12/29/17 12/29/17 12/29/17 18:18 20:00 20:00 WBC 6.2 RBC 5.07 Hgb 13.0 Hct 40.5 MCV 79.9 L MCH 25.6 MCHC 32.1 RDW 16.2 H Plt Count 246 MPV 9.6 Gran % 48.3 L Lymph % (Auto) 41.8 H [place] % (Auto) 8.3 H Eos % (Auto) 1.3 L Baso % (Auto) 0.3 Gran # 2.98 Lymph # (Auto) 2.6 [place] # (Auto) 0.5 Eos # (Auto) 0.1 Baso # (Auto) 0.02 PT 11.8 INR 1.03 APTT 24.8 L pO2 VBG pH VBG pCO2 VBG HCO3 VBG Total CO2 VBG O2 Sat (Calc) VBG Base Excess VBG Potassium Sodium Chloride Glucose Lactate FiO2 Potassium Carbon Dioxide Anion Gap BUN Creatinine Est GFR ( Amer) Est GFR (Non-Af Amer) POC Glucose (mg/dL) 99 Random Glucose Calcium Magnesium Total Bilirubin AST ALT Alkaline Phosphatase Lactate Dehydrogenase Total Creatine Kinase Troponin I NT-Pro-B Natriuret Pep Total Protein Albumin Globulin Albumin/Globulin Ratio Venous Blood Potassium Urine Color Urine Appearance Urine pH Ur Specific [place] Urine Protein Urine Glucose (UA) Urine Ketones Urine Blood Urine Nitrate Urine Bilirubin Urine Urobilinogen Ur Leukocyte Esterase Urine RBC Urine WBC Ur Epithelial Cells Urine Bacteria Urine Other 12/29/17 12/29/17 12/29/17 20:00 20:00 22:55 WBC RBC Hgb Hct MCV MCH MCHC RDW Plt Count MPV Gran % Lymph % (Auto) [place] % (Auto) Eos % (Auto) Baso % (Auto) Gran # Lymph # (Auto) [place] # (Auto) Eos # (Auto) Baso # (Auto) PT INR APTT pO2 102 H VBG pH 7.38 VBG pCO2 58.0 VBG HCO3 34.3 H VBG Total CO2 36.1 H VBG O2 Sat (Calc) 99.0 H VBG Base Excess 7.3 H VBG Potassium 5.5 H Sodium 138.0 141 Chloride 100.0 98 Glucose 108 H Lactate 2.5 H FiO2 21.0 Potassium 3.5 L Carbon Dioxide 32 Anion Gap 14 BUN 10 Creatinine 0.6 L Est GFR ( Amer) > 60 Est GFR (Non-Af Amer) > 60 POC Glucose (mg/dL) Random Glucose 116 H Calcium 9.7 Magnesium 2.0 Total Bilirubin 0.5 AST 48 H D ALT 40 Alkaline Phosphatase 99 Lactate Dehydrogenase 612 Total Creatine Kinase 79 Troponin I < 0.01 NT-Pro-B Natriuret Pep 52.8 Total Protein 8.6 H Albumin 4.3 Globulin 4.2 Albumin/Globulin Ratio 1.0 L Venous Blood Potassium 5.5 H Urine Color Yellow Urine Appearance Cloudy Urine pH 7.5 Ur Specific [place] 1.020 Urine Protein 100 H Urine Glucose (UA) Negative Urine Ketones Trace H Urine Blood Moderate H Urine Nitrate Negative Urine Bilirubin Negative Urine Urobilinogen 1.0 H Ur Leukocyte Esterase Large H Urine RBC 20 - 25 Urine WBC 25 - 30 Ur Epithelial Cells 6 - 8 Urine Bacteria Many Urine Other Mucus 12/30/17 12/30/17 12/30/17 01:30 03:45 07:25 WBC RBC Hgb Hct MCV MCH MCHC RDW Plt Count MPV Gran % Lymph % (Auto) [place] % (Auto) Eos % (Auto) Baso % (Auto) Gran # Lymph # (Auto) [place] # (Auto) Eos # (Auto) Baso # (Auto) PT INR APTT pO2 29 L 22 L 40 VBG pH 7.34 7.39 7.38 VBG pCO2 58.0 63.0 H 66.0 H* VBG HCO3 31.3 H 38.1 H 39.0 H VBG Total CO2 33.1 H 40.0 H 41.0 H VBG O2 Sat (Calc) 54.4 31.1 L 71.8 H VBG Base Excess 3.9 H 10.5 H 11.1 H VBG Potassium 3.1 L 4.1 4.3 Sodium 141.0 143.0 143.0 Chloride 100.0 103.0 103.0 Glucose 100 107 H 107 H Lactate 5.4 H* 2.3 H 2.1 FiO2 21.0 21.0 21.0 Potassium Carbon Dioxide Anion Gap BUN Creatinine Est GFR ( Amer) Est GFR (Non-Af Amer) POC Glucose (mg/dL) Random Glucose Calcium Magnesium Total Bilirubin AST ALT Alkaline Phosphatase Lactate Dehydrogenase Total Creatine Kinase Troponin I NT-Pro-B Natriuret Pep Total Protein Albumin Globulin Albumin/Globulin Ratio Venous Blood Potassium 3.1 L 4.1 4.3 Urine Color Urine Appearance Urine pH Ur Specific [place] Urine Protein Urine Glucose (UA) Urine Ketones Urine Blood Urine Nitrate Urine Bilirubin Urine Urobilinogen Ur Leukocyte Esterase Urine RBC Urine WBC Ur Epithelial Cells Urine Bacteria Urine Other Assessment & Plan - Assessment and Plan (Free Text) Assessment: 77 year old female sent from senior living with weakness asserted by nursing staff and found to have UTI without fever or chills. She was observed overnight. Plan: Discharge patient back to nursing on PO antibiotics for UTI. Will follow up cult ures. Case reviewed and discussed with attending physician, Dr. Poe - Date & Time Date: 12/30/17 Time: 16:35 <Ata Poe - Last Filed: 12/30/17 18:59> Results - Vital Signs Recent Vital Signs: Last Vital Signs Temp 98.4 F 12/30/17 06:00 Pulse 90 12/30/17 06:00 Resp 20 12/30/17 06:00 BP 118/78 12/30/17 09:16 Pulse Ox 96 12/30/17 06:00 - Labs Result Diagrams: 12/29/17 20:00 12/29/17 20:00 Labs: Laboratory Results - last 24 hr 12/29/17 12/29/17 12/29/17 20:00 20:00 20:00 WBC 6.2 RBC 5.07 Hgb 13.0 Hct 40.5 MCV 79.9 L MCH 25.6 MCHC 32.1 RDW 16.2 H Plt Count 246 MPV 9.6 Gran % 48.3 L Lymph % (Auto) 41.8 H [place] % (Auto) 8.3 H Eos % (Auto) 1.3 L Baso % (Auto) 0.3 Gran # 2.98 Lymph # (Auto) 2.6 [place] # (Auto) 0.5 Eos # (Auto) 0.1 Baso # (Auto) 0.02 PT 11.8 INR 1.03 APTT 24.8 L pO2 102 H VBG pH 7.38 VBG pCO2 58.0 VBG HCO3 34.3 H VBG Total CO2 36.1 H VBG O2 Sat (Calc) 99.0 H VBG Base Excess 7.3 H VBG Potassium 5.5 H Sodium 138.0 Chloride 100.0 Glucose 108 H Lactate 2.5 H FiO2 21.0 Potassium Carbon Dioxide Anion Gap BUN Creatinine Est GFR ( Amer) Est GFR (Non-Af Amer) Random Glucose Calcium Magnesium Total Bilirubin AST ALT Alkaline Phosphatase Lactate Dehydrogenase Total Creatine Kinase Troponin I NT-Pro-B Natriuret Pep Total Protein Albumin Globulin Albumin/Globulin Ratio Venous Blood Potassium 5.5 H Urine Color Urine Appearance Urine pH Ur Specific [place] Urine Protein Urine Glucose (UA) Urine Ketones Urine Blood Urine Nitrate Urine Bilirubin Urine Urobilinogen Ur Leukocyte Esterase Urine RBC Urine WBC Ur Epithelial Cells Urine Bacteria Urine Other 12/29/17 12/29/17 12/30/17 20:00 22:55 01:30 WBC RBC Hgb Hct MCV MCH MCHC RDW Plt Count MPV Gran % Lymph % (Auto) [place] % (Auto) Eos % (Auto) Baso % (Auto) Gran # Lymph # (Auto) [place] # (Auto) Eos # (Auto) Baso # (Auto) PT INR APTT pO2 29 L VBG pH 7.34 VBG pCO2 58.0 VBG HCO3 31.3 H VBG Total CO2 33.1 H VBG O2 Sat (Calc) 54.4 VBG Base Excess 3.9 H VBG Potassium 3.1 L Sodium 141 141.0 Chloride 98 100.0 Glucose 100 Lactate 5.4 H* FiO2 21.0 Potassium 3.5 L Carbon Dioxide 32 Anion Gap 14 BUN 10 Creatinine 0.6 L Est GFR ( Amer) > 60 Est GFR (Non-Af Amer) > 60 Random Glucose 116 H Calcium 9.7 Magnesium 2.0 Total Bilirubin 0.5 AST 48 H D ALT 40 Alkaline Phosphatase 99 Lactate Dehydrogenase 612 Total Creatine Kinase 79 Troponin I < 0.01 NT-Pro-B Natriuret Pep 52.8 Total Protein 8.6 H Albumin 4.3 Globulin 4.2 Albumin/Globulin Ratio 1.0 L Venous Blood Potassium 3.1 L Urine Color Yellow Urine Appearance Cloudy Urine pH 7.5 Ur Specific [place] 1.020 Urine Protein 100 H Urine Glucose (UA) Negative Urine Ketones Trace H Urine Blood Moderate H Urine Nitrate Negative Urine Bilirubin Negative Urine Urobilinogen 1.0 H Ur Leukocyte Esterase Large H Urine RBC 20 - 25 Urine WBC 25 - 30 Ur Epithelial Cells 6 - 8 Urine Bacteria Many Urine Other Mucus 12/30/17 12/30/17 03:45 07:25 WBC RBC Hgb Hct MCV MCH MCHC RDW Plt Count MPV Gran % Lymph % (Auto) [place] % (Auto) Eos % (Auto) Baso % (Auto) Gran # Lymph # (Auto) [place] # (Auto) Eos # (Auto) Baso # (Auto) PT INR APTT pO2 22 L 40 VBG pH 7.39 7.38 VBG pCO2 63.0 H 66.0 H* VBG HCO3 38.1 H 39.0 H VBG Total CO2 40.0 H 41.0 H VBG O2 Sat (Calc) 31.1 L 71.8 H VBG Base Excess 10.5 H 11.1 H VBG Potassium 4.1 4.3 Sodium 143.0 143.0 Chloride 103.0 103.0 Glucose 107 H 107 H Lactate 2.3 H 2.1 FiO2 21.0 21.0 Potassium Carbon Dioxide Anion Gap BUN Creatinine Est GFR ( Amer) Est GFR (Non-Af Amer) Random Glucose Calcium Magnesium Total Bilirubin AST ALT Alkaline Phosphatase Lactate Dehydrogenase Total Creatine Kinase Troponin I NT-Pro-B Natriuret Pep Total Protein Albumin Globulin Albumin/Globulin Ratio Venous Blood Potassium 4.1 4.3 Urine Color Urine Appearance Urine pH Ur Specific [place] Urine Protein Urine Glucose (UA) Urine Ketones Urine Blood Urine Nitrate Urine Bilirubin Urine Urobilinogen Ur Leukocyte Esterase Urine RBC Urine WBC Ur Epithelial Cells Urine Bacteria Urine Other Assessment & Plan - Assessment and Plan (Free Text) Assessment: Pt seen and examined. I have reviewed the note of the medical radiation therapist and agree with it. I have discussed the assessment and plan with the resident. I have reviewed the patient's labs and medications. Pt with UTI and placed on Bactrim. Will be discharged. See the D/C summary.
--- NOTE | 2017-12-30 20:34 | CON ---
DATE: 12/30/2017 INDICATION: Unresponsiveness. HISTORY OF PRESENT ILLNESS: This is a 77-year-old [place] to [place], admitted in transfer from [facility] where she was found to have a short episode of unresponsiveness or unable to speak. Apparently, she was visiting with her family and for 10 or 15 minutes was unable to speak. By the time she arrived in the emergency room, the symptoms had resolved. There was no chest pain, shortness of breath, orthopnea, PND, syncope, presyncope, lightheadedness, dizziness, fever, chills, cough, sputum production, hemoptysis, abdominal pain, nausea, vomiting, diarrhea, constipation, or melena. PAST MEDICAL HISTORY: Includes hypertension, congestive heart failure, hypothyroidism, Ryan's palsy with residual left-sided facial droop, obesity, arthritis. She is a longterm resident. She has been in [facility]. There is no history of rheumatic fever, myocardial infarction, angina, arrhythmia, stroke, TIA, diabetes, or gout. MEDICATIONS AT THE TIME OF ADMISSION: Included levothyroxine, metoprolol, Lipitor, aspirin, hydralazine, Xanax, Pepcid, Lasix, Remeron, multivitamins, Zofran p.r.n., KCl, zinc sulfate, tramadol p.r.n. ALLERGIES: THERE ARE NO MEDICATION ALLERGIES. SOCIAL HISTORY: She is a longterm resident. She does not smoke cigarette. She does not drink alcohol. REVIEW OF SYSTEMS: The 10-point review of systems is unremarkable. FAMILY HISTORY: Noncontributory. PHYSICAL EXAMINATION: GENERAL: She is a well-developed elderly woman, lying in bed, in 5R, in no acute distress. VITAL SIGNS: Notable for pulse of 95, afebrile, blood pressure 144/74, respiratory rate 18-20, O2 saturations 96%-97% on room air. HEENT EXAM: Reveals no neck vein distention, thyromegaly, carotid bruits. Mucous membranes are moist. Conjunctivae pink. NECK: Supple. LUNGS: Lung cespedes are clear. HEART: Revealed normal first and second heart sounds. ABDOMEN: Soft. Bowel sounds present. No mass, organomegaly, tenderness, rebound or guarding. No CVA tenderness. No palpable abdominal aortic aneurysm. EXTREMITIES: Revealed no cyanosis, clubbing, or edema. NEUROLOGIC: Awake, alert, and oriented. PSYCHIATRIC: Normal as to mood and affect. SKIN: Warm and dry. No rash or cellulitis. LABORATORY AND IMAGING: The CT of the head was unremarkable. The chest x-ray is not read yet. It is a portable study. There is no evidence of CHF, infiltrate, or effusion. There is cardiomegaly on a portable study. EKG demonstrates regular sinus rhythm, APCs, left axis deviation, poor R-wave progression, nonspecific ST wave changes, prolonged QT interval. White count normal. Hemoglobin and hematocrit 13 and 40.5, platelet count normal. PT/INR, PTT unremarkable. Blood gases are noted. Electrolytes: BUN, creatinine, and blood sugar unremarkable. Potassium 3.5, magnesium 2. LFTs markedly abnormal. CK 79, troponin less than 0.01. BNP 52.8. Urinalysis is abnormal as noted. IMPRESSION: Hoda Alegria is a 77-year-old woman who experienced an apparent unresponsive episode of about 10 or 15 minutes during which time she could not speak, although she was aware of her environment. CT scan is unremarkable. EKG demonstrates atrial premature complexes. At this time, I would continue her current medications. She should be considered for neurologic evaluation. I would continue her current medications including aspirin, Lasix, Lipitor, metoprolol, Pepcid, potassium, Synthroid, zinc sulfate, she got Lovenox. She can be out of bed to a chair. A sacral ulcer is being evaluated. I would be conservative with regard to cardiac workup, unless symptoms recur. At that time, Holter monitor to evaluate possible arrhythmia should be considered. I will discuss her case further with you. I will follow along with you. I will make additional recommendations based on her clinical course. Rex Ling MD MTDD
== END 2017-12-30 20:28 ==
LOC: ED 17:52 → INTOOBSV 23:29 → ERH 23:29 → 5RSO 12-30 01:18
PROVIDERS: ADMIT Internal Medicine Nephrology; ATTEND Internal Medicine Nephrology
DX: A41.9 Sepsis, unspecified organism (principal); E03.9 Hypothyroidism, unspecified; E78.00 Pure hypercholesterolemia, unspecified; I11.0 Hypertensive heart disease with heart failure; I50.32 Chronic diastolic (congestive) heart failure; N39.0 Urinary tract infection, site not specified; Z79.82 Long term (current) use of aspirin; Z90.49 Acquired absence of other specified parts of digestive tract; G51.0 Bell's palsy; M19.90 Unspecified osteoarthritis, unspecified site; E66.01 Morbid (severe) obesity due to excess calories; Z68.34 Body mass index [BMI] 34.0-34.9, adult; M67.442 Ganglion, left hand; R40.2412 Glasgow coma scale score 13-15, at arrival to emergency department
CPT/HCPCS: 36415; 70450; 71045; 80053; 81001; 82550; 82803; 82948; 83615; 83735; 83880; 84484; 85025; 85610; 85730; 87040; 87086; 87181; 93005; 96365; 96375; 99285; G0378; J0696; J3480; J7030